=== PATIENT | male | born 1970 | race Caucasian/White ===

== ENCOUNTER 2020-10-04 14:07 | Emergency (ER) | payer OTHER, SELFPAY ==
--- NOTE | ~2020-10-04 | XR_ITS ---
EXAMINATION: XR chest 1V portable EXAM DATE: 10/04/2020 15:57 INDICATION: Fever, headache, neck pain. TECHNIQUE: Portable AP frontal chest x-ray was obtained. There is no prior study for comparison. FINDINGS: There is approximately 5 cm opacity in the left upper lobe, a smaller left midlung zone opa city. Probably acute infectious process. Small to moderate right-sided pleural effusion. There is lob ular region along the left lower lateral aspect of the pleura, which could be a small loculated pleur al effusion. There are bony degenerative changes. The cardiomediastinal silhouette is prominent but m agnified on this AP technique. There is no pneumothorax suspected. IMPRESSION: 1. Left upper and mid lung zone airspace disease, most likely acute infection. Could be bacterial or viral. 2. Small to moderate right, possible small loculated limited left pleural effusions. 3. Follow-up chest x-ray is recommended in 1 month to exclude underlying cancer. Reviewed, dictated and finalized at location A. ARTS INSTRUCTOR IMPRESSION: 1. Left upper and mid lung zone airspace disease, most likely acute infection. Could be bacterial or viral. 2. Small to moderate right, possible small loculated limited left pleural effu sions. 3. Follow-up chest x-ray is recommended in 1 month to exclude underlying cance r.
[2020-10-04 14:17] VITALS: BP 171/93; PULSE 107; RESP 20; TEMP 37.9; O2SAT 94
--- NOTE | 2020-10-04 15:38 | ECG_ITS ---
Measurements Intervals [place] Rate: 94 P: 88 ME: 146 QRS: 53 QRSD: 90 T: 30 QT: 329 QTc: 413 Interpretive Statements SINUS RHYTHM VENTRICULAR PREMATURE COMPLEX NONSPECIFIC T-WAVE ABNORMALITY- INFERIOR LEADS BASELINE ARTIFACT- I, III, AVR, AVL BORDERLINE ECG Electronically Signed On 10-04-2020 17:22:07 SPIRITUAL MINISTER by Tanmay Angulo D.O.
--- NOTE | 2020-10-04 15:38 | ED.FEVER ---
HPI - Fever General Chief Complaint: Fever Stated Complaint: fever, achey, neck pain, headache Time Seen by Provider: 10/04/20 15:38 [facility] Social History Social History Gender identity (if verbalized by the patient): Male Course Vital Signs Vital signs: Vital Signs Temperature 37.9 C H 10/04/20 14:17 Pulse Rate 107 H 10/04/20 14:17 Respiratory Rate 20 10/04/20 14:17 Blood Pressure 171/93 H 10/04/20 14:17 Pulse Oximetry 94 10/04/20 14:17 Temperature 37.9 C H 10/04/20 14:17 Pulse Rate 107 H 10/04/20 14:17 Respiratory Rate 20 10/04/20 14:17 Blood Pressure 171/93 H 10/04/20 14:17 Pulse Oximetry 94 10/04/20 14:17
[2020-10-04] MEDS: SODIUM CHLORIDE 0.9% IV 1,000 ML 999 ML IV CONT (16:05)
[2020-10-04] MEDS: ACETAMINOPHEN 500 MG TABLET 1000 MG PO (16:06)
[2020-10-04 16:22] LABS: Basophils Percent Auto 0.4 % (0.2-1.2); Eosinophils Percent Auto 0.5 % (0-4.4); Hematocrit 44.4 % (42.0-52.0); Hemoglobin 15.1 g/dL (14.0-18.0); Immature Granulocyte Absolute 0.05 K/mm3 (0.00-0.031); Immature Granulocyte Percent A 0.6 % (0-0.5); Lymphocytes Absolute Auto 1.08 K/mm3 (0.9-3.2); Lymphocytes Percent Auto 13.5 % (18.3-44.2); Mean Corpuscular Hemoglobin 32.1 pg (26-34); Mean Corpuscular Volume 94.3 fl (80-100); Mean Platelet Volume 9.5 fl (7.4-10.4); Monocytes Absolute Auto 0.8 K/mm3 (0.1-0.6); Monocytes Percent Auto 9.9 % (2.6-8.5); Neutrophils Percent Auto 75.1 % (45.5-73.1); Platelet Count Result 216 k/mm3 (150-375); Red Blood Count 4.71 M/mm3 (4.6-6.20); Red Cell Distribution Width 12.9 % (11.5-14.5)
[2020-10-04 16:30] LABS: Alveolar/Arterial O2 Gradient 37.7 mmHg; Base Excess ABG 1.2 mEq/l (+/-2.0); Fractional Inspired Oxygen 21 %; HCO3 ABG 25.6 mEq/l (22.0-26.0); Methemoglobin ABG 0.2 %THb (0-1.5); Oxygen Saturation ABG 93.1 % (95.0-100.0); Oxyhemoglobin 91.8 % THb (90.0-100.0); PCO2 ABG 39.7 mmHg (35.0-45.0); PO2 ABG 64.5 mmHg (80.0-100.0); PO2 FiO2 Ratio Arterial Blood 3.07 %; Total Hemoglobin 15.5 g/dL (12.0-18.0); pH ABG 7.427 (7.350-7.450)
[2020-10-04 16:31] LABS: Device ROOM AIR; Modified Allen's Test Pass; Site Drawn RIGHT RADIAL
[2020-10-04 16:34] LABS: Lactic Acid Reflex 1.1 mmol/L (0.7-2.1)
[2020-10-04 16:45] LABS: Alanine Aminotransferase 42 U/L (4-50); Albumin Level 4.2 g/dL (3.5-5.1); Alkaline Phosphatase 61 U/L (38-126); Anion Gap 7 mmol/L (8-16); Aspartate Amino Transferase 37 U/L (17-59); Bilirubin,Total 0.9 mg/dL (0.2-1.3); Blood Urea Nitrogen 11 mg/dL (9-20); CRP 5.5 mg/dL (<1.0); Carbon Dioxide 31 mmol/L (22-30); Chloride 100 mmol/L (98-107); Estimated CRCL calculation 161 ml/min; Estimated Glomerular Filt Rate > 60; Glucose 142 mg/dL (75-110); Potassium 4.1 mmol/L (3.4-5.0); Sodium 138 mmol/L (137-145)
[2020-10-04 16:48] LABS: Mucus Urine Rare /lpf; WBC Urine 0-3 /hpf
[2020-10-04 16:49] LABS: Appearance Urine Sl Cloudy (Clear); Color Urine Yellow (Yellow)
[2020-10-04 16:50] LABS: Blood Urine 2+ (Negative); Glucose Urine UA Negative (Negative); Ketones Urine Negative (Negative); Nitrate Urine Negative (Negative); Protein Urine Trace mg/dL (Negative); Specific Grav Ur 1.015 (1.001-1.035)
[2020-10-04 16:51] LABS: Add Urine Microscopic? YES; Bilirubin Urine Negative (Negative); Leukocyte Esterase Ur Negative LEU/UL (Negative); Urobilinogen Urine Normal mg/dL (<2.0)
--- NOTE | 2020-10-04 17:00 | ED.FEVER ---
HPI - Fever General Chief Complaint: Fever <Tyler Hernandez PA-C - Last Filed: 10/04/20 17:40> Stated Complaint: fever, achey, neck pain, headache <Tyler Hernandez PA-C - Last Filed: 10/04/20 17:40> Time Seen by Provider: 10/04/20 15:38 <Tyler Hernandez PA-C - Last Filed: 10/04/20 17:40> Source: patient <Tyler Hernandez PA-C - Last Filed: 10/04/20 17:40> Mode of arrival: ambulatory <Tyler Hernandez PA-C - Last Filed: 10/04/20 17:40> Limitations: no limitations <Tyler Hernandez PA-C - Last Filed: 10/04/20 17:40> History of Present Illness HPI Narrative: Patient is a 50-year-old male who presents with 2 days duration of fever chills body ache neck pain headache minimal cough chills fever patient denies vomiting diarrhea chest pain shortness of breath. Patient denies known sick contacts but has been working. Patient has been attempting [id number] medications with minimal improvement. Patient presents per private vehicle and on arrival is febrile. <Tyler Hernandez PA-C - Last Filed: 10/04/20 17:40> Related Data Home Medications: Home Medications Medication Instructions Recorded Confirmed amlodipine 10 mg 10/04/20 glimepiride 1 mg 10/04/20 lisinopril 40 mg 10/04/20 metformin mg PO 10/04/20 <Tyler Hernandez PA-C - Last Filed: 10/04/20 17:40> Allergies/Adverse Reactions: Allergies Allergy/AdvReac Type Severity Reaction Status Date / Time No Known Allergies Allergy Verified 10/04/20 16:03 <Tyler Hernandez PA-C - Last Filed: 10/04/20 17:40> Review of Systems Review of Systems: All systems reviewed & are unremarkable except as noted in HPI and below <Tyler Hernandez PA-C - Last Filed: 10/04/20 17:40> PMFSH Past Medical History Medical History: Medical History (Updated 10/04/20 @ 17:36 by Tyler Hernandez PA-C) Diabetes mellitus Obesity <SHAKIRA Espinoza Last Filed: 10/04/20 17:40> Social History Social History: Social History (Updated 10/04/20 @ 17:02 by Tyler Hernandez PA-C) Smoking status: Never smoker Gender identity (if verbalized by the patient): Male <Tyler Hernandez PA-C - Last Filed: 10/04/20 17:40> Exam Narrative: Exam Narrative: GENERAL: Ill-appearing, obese, and in no acute distress. HEAD: Normocephalic, atraumatic. EYES: PERRLA and EOMI. ENT: Nares clear, no rhinorrhea or epistaxis. Mucous membranes moist. CHEST: Diminished on auscultation. No respiratory distress. No wheezes rales or rhonchi HEART: Tachycardic rate and regular rhythm. No murmur heard. Normal peripheral pulses. ABDOMEN: Soft, nontender, distended EXTREMITIES: Normal range of motion. No edema. SKIN: Warm, dry, no rash. NEURO: No focal deficits. Alert and oriented x3. Cranial nerves II through XII grossly intact. No meningismus PSYCH: Normal mood and affect. <Tyler Hernandez PA-C - Last Filed: 10/04/20 17:40> Course Course Emergency Course: Patient in the room at this time has been given medications as well as hydration patient with improvement of condition with likely COVID-19 as the etiology for his symptoms and illness patient was swabbed. Patient with pneumonia likely attributed to COVID-19 will be treated with antibiotic for this patient will be discharged home patient was asked to do squats in the room he did become hypoxic but quickly recovered patient has not required oxygenation patient notes that he does feel comfortable to try at home therapy and will return if symptoms worsen and has been provided with reasons to return. Patient without other high risk changes in his blood work. Patient will be sent home with an MDI and incentive spirometer. Patient is also been instructed to get a pulse oximeter to watch his oxygenation at home. Patient notes that he also has CPAP which she will be compliant with and has been. Patient also notes he will follow with primary care <Tyler Hernandez PA-C
[2020-10-04 17:02] VITALS: BP 117/51; PULSE 77; RESP 17; O2SAT 92
[2020-10-04] MEDS: DEXAMETHASONE SOD PHOS INJ 4 MG/ML VIAL 10 MG IV PUSH (18:03)
[2020-10-04 18:12] VITALS: BP 160/88; PULSE 90; RESP 20; TEMP 37.3; O2SAT 95
[2020-10-05 01:50] LABS: SARS-CoV-2 RNA PCR Positive
== END 2020-10-04 18:13 | disposition home or self-care (01) ==
PROVIDERS: Emergency Medicine Emergency Medical Services; Emergency Provider Emergency Medicine
DX: U07.1 COVID-19 (principal); J12.89 Other viral pneumonia; E11.9 Type 2 diabetes mellitus without complications; Z79.84 Long term (current) use of oral hypoglycemic drugs; E66.9 Obesity, unspecified; Z68.43 Body mass index [BMI] 50.0-59.9, adult
CPT/HCPCS: 36415; 36600; 71045; 80053; 81001; 82375; 82805; 83050; 83605; 85025; 86140; 87040; 87635; 87804; 93005; 96361; 96374; 99284; A9270; C9803; J1100; J7030; U0003

== ENCOUNTER 2020-10-06 03:48 | Emergency (ER) | payer OTHER, SELFPAY ==
--- NOTE | ~2020-10-06 | XR_ITS ---
EXAMINATION: XR chest 1V portable DATE: 10/06/2020 04:52 INDICATION: Fever. COVID-19 pneumonia. TECHNIQUE: A single frontal view of the chest was obtained on 2 radiographs. COMPARISON: Chest single view 10/04/2020 FINDINGS: There are small pleural effusions. There are airspace opacities at right lung base and in a ll left lung zones with an upper lobe predominance. No pneumothorax. The heart size is normal. IMPRESSION: 1. Worsened airspace opacities in left mid and upper lung zones, consistent with pneumonia. Mild airs pace opacities at the lung bases, consistent with atelectasis versus pneumonia. 2. Stable small pleural effusions. Reviewed, dictated and finalized at location A. ANALYST IMPRESSION: 1. Worsened airspace opacities in left mid and upper lung zones, consistent wit h pneumonia. Mild airspace opacities at the lung bases, consistent with atelect asis versus pneumonia. 2. Stable small pleural effusions.
[2020-10-06 03:54] VITALS: BP 107/66; PULSE 103; RESP 20; TEMP 38.1; O2SAT 92
[2020-10-06 04:36] LABS: Basophils Percent Auto 0.4 % (0.2-1.2); Eosinophils Percent Auto 0.5 % (0-4.4); Hemoglobin 14.8 g/dL (14.0-18.0); Immature Granulocyte Absolute 0.03 K/mm3 (0.00-0.031); Immature Granulocyte Percent A 0.4 % (0-0.5); Lymphocytes Absolute Auto 1.17 K/mm3 (0.9-3.2); Lymphocytes Percent Auto 15.2 % (18.3-44.2); Mean Corpuscular HGB Conc 33.6 g/dl (32-36); Mean Corpuscular Hemoglobin 31.2 pg (26-34); Mean Corpuscular Volume 92.8 fl (80-100); Mean Platelet Volume 9.6 fl (7.4-10.4); Monocytes Absolute Auto 0.7 K/mm3 (0.1-0.6); Monocytes Percent Auto 9.5 % (2.6-8.5); Neutrophils Absolute Auto 5.7 K/mm3 (1.3-6.7); Platelet Count Result 210 k/mm3 (150-375); Red Blood Count 4.74 M/mm3 (4.6-6.20); White Blood Count 7.7 K/mm3 (4.5-10.0)
[2020-10-06 04:48] LABS: Lactic Acid Reflex 0.9 mmol/L (0.7-2.1)
[2020-10-06 04:50] LABS: Alanine Aminotransferase 41 U/L (4-50); Alkaline Phosphatase 45 U/L (38-126); Anion Gap 8 mmol/L (8-16); Aspartate Amino Transferase 60 U/L (17-59); Bilirubin,Total 0.7 mg/dL (0.2-1.3); Blood Urea Nitrogen 20 mg/dL (9-20); Calcium 9.8 mg/dL (8.4-10.2); Carbon Dioxide 30 mmol/L (22-30); Chloride 98 mmol/L (98-107); Estimated Glomerular Filt Rate > 60; Glucose 155 mg/dL (75-110); Sodium 136 mmol/L (137-145)
[2020-10-06 04:52] LABS: Prothrombin Time 13.5 Seconds (11.1-14.7)
[2020-10-06 04:53] LABS: Partial Thromboplastin Time 30.4 SECONDS (22.3-36.8)
--- NOTE | 2020-10-06 06:09 | ED.FEVER ---
HPI - Fever General Chief Complaint: Fever Stated Complaint: fever, waiting on covid results Time Seen by Provider: 10/06/20 04:43 Source: patient Mode of arrival: ambulatory Limitations: no limitations History of Present Illness HPI Narrative: This patient is a 50 year old male who presents for evaluation of a fever. He was evaluated 2 days ago for a fever. He was found to have pneumonia that is likely caused by COVID. He was discharged home with antibiotics, steroids and albuterol. He reports that he feels fine. He did not have another symptoms of covid until yesterday. He denies cough, shortness of breath, chest pain, vomiting, diarrhea or weakness. He was concerned because he had a high fever. He has been taking tylenol and ibuprofen alternating. He lose his sense of smell yesterday. MD elicited complaint: fever Related Data Home Medications Medication Instructions Recorded Confirmed amlodipine 10 mg 10/04/20 glimepiride 1 mg 10/04/20 lisinopril 40 mg 10/04/20 metformin mg PO 10/04/20 Allergies Allergy/AdvReac Type Severity Reaction Status Date / Time No Known Allergies Allergy Verified 10/04/20 16:03 Review of Systems Review of Systems: All systems reviewed & are unremarkable except as noted in HPI and below Constitutional: Constitutional: Denies chills and Reports fever(s) ENT: Denies nasal congestion and Denies sore throat Cardiovascular: Cardiovascular: Denies chest pain Respiratory: Respiratory: Denies dyspnea and Denies wheezing Gastrointestinal: Gastrointestinal: Denies abdominal pain, Denies nausea and Denies vomiting [facility] Past Medical History Medical History (Updated 10/06/20 @ 08:12 by Janice Harris MD) Diabetes mellitus Obesity Sleep apnea Social History Social History (Updated 10/04/20 @ 17:02 by Tyler Hernandez PA-C) Smoking status: Never smoker Gender identity (if verbalized by the patient): Male Exam Const: General: no acute distress Nutritional Appearance: obese Orientation/consciousness: patient oriented x3 HENMT: Head: atraumatic Face and sinus: face symmetric Mouth: Yes Normal oral and palatal mucosa present, Yes lip normal, Yes oropharynx normal and Yes moist mucous membranes Eyes: EOM: EOMs intact bilaterally Chest: Chest palpation & inspection: normal inspection of the chest Resp: Effort & Inspection: normal respiratory effort and no retractions Auscultation: clear to auscultation bilaterally Cardio: Rate: regular rate Rhythm: regular rhythm Heart sounds: no murmurs GI: GI Palp: Yes Soft to palpation, No Tenderness to palpation present (GI), No Guarding due to palpation present (GI) and No Rigid due to palpation Auscultation: normal bowel sounds Skin: General skin exam: normal color Rashes: no rashes Neuro: General: patient oriented x3 and moves all extremities Psych: Mental Status: mental status grossly normal Affect: normal affect Course Reevaluation(s) Reevaluation #1: PAtient states he feels fine. I discussed his xray appears to be the same as 2 days ago. He is not in distress. He is comfortable with discharge home . He will continue management of fever. I Also recommended getting pulse oximeter to monitor his oxygen. Date: 10/06/20 Time: 06:09 Vital Signs Vital signs: Vital Signs Temperature 100.6 F H 10/06/20 03:54 Pulse Rate 103 H 10/06/20 03:54 Respiratory Rate 20 10/06/20 03:54 Blood Pressure 107/66 10/06/20 03:54 Pulse Oximetry 92 10/06/20 03:54 Temperature 100.4 F H 10/06/20 06:58 Pulse Rate 103 H 10/06/20 06:58 Respiratory Rate 19 10/06/20 06:58 Blood Pressure 151/76 H 10/06/20 06:58 Pulse Oximetry 95 10/06/20 06:58 MDM - Fever Lab Data Attestation: I reviewed the patient's lab results. Result diagrams: 10/06/20 04:21 10/06/20 04:21 Labs: Lab Results 10/06/20 10/06/20 10/06/20 Range/Units 04:21 04:21 04:21 WBC 7.7 (
[2020-10-06 06:58] VITALS: BP 151/76; PULSE 103; RESP 19; TEMP 38; O2SAT 95
== END 2020-10-06 07:00 | disposition home or self-care (01) ==
PROVIDERS: Emergency Provider General Practice; PCP Internal Medicine Infectious Disease
DX: U07.1 COVID-19 (principal); J12.89 Other viral pneumonia; E11.9 Type 2 diabetes mellitus without complications; G47.30 Sleep apnea, unspecified; E66.9 Obesity, unspecified
CPT/HCPCS: 36415; 71045; 80053; 83605; 85025; 85610; 85730; 86140; 99283

== ENCOUNTER 2020-10-09 03:32 | Inpatient (IN) | payer OTHER, SELFPAY ==
[2020-10-09] VITALS (25 sets, daily range): BP systolic 104–152; BP diastolic 50–82; PULSE 69–121; RESP 16–44; TEMP 36.9–39.5; O2SAT 58–100; BMI 52.4
--- NOTE | ~2020-10-09 | US_ITS ---
EXAMINATION: US renal BI EXAM DATE: 10/12/2020 08:30 INDICATION: Acute kidney insufficiency. TECHNIQUE: Multiple grayscale and Doppler images of the kidneys were obtained (by a technologist who performed the scan) and subsequently reviewed. There is no prior study for comparison. FINDINGS: Right kidney: There is normal contour and echogenicity. It measures 12.6 x 8.8 x 7.8 centimeters. T here are no focal renal lesions identified. There is no hydronephrosis. Left kidney: There is normal contour and echogenicity. It measures 12.3 x 7.3 x 7.3 centimeters. Th ere are no focal renal lesions identified. There is no hydronephrosis. Bladder not imaged, patient in prone position. IMPRESSION: Sonographically unremarkable kidneys. Reviewed, dictated and finalized at location A. NG MACHINE ATTENDANT
--- NOTE | ~2020-10-09 | XR_ITS ---
EXAMINATION: XR chest 1V portable DATE: 10/09/2020 04:47 INDICATION: Shortness of breath. COVID-19 pneumonia. TECHNIQUE: A single frontal view of the chest was obtained on 2 radiographs. COMPARISON: Chest single view 10/06/2020 FINDINGS: Again seen is mild elevation of right hemidiaphragm. There are small pleural effusions. The re are airspace opacities in all lung zones bilaterally, left worse than right. No pneumothorax. The heart size is normal. IMPRESSION: 1. Worsened diffuse lung disease, consistent with pneumonia. 2. Stable small pleural effusions. Reviewed, dictated and finalized at location A. GRAILS DEVELOPER
--- NOTE | ~2020-10-09 | XR_ITS ---
EXAMINATION: XR chest 1V portable DATE: 10/13/2020 13:45 INDICATION: COVID-19 pneumonia. Oxygen desaturation. TECHNIQUE: A single frontal view of the chest was obtained on 2 radiographs. COMPARISON: Chest single view 11:15 AM FINDINGS: There are airspace opacities in all lung zones bilaterally, right worse than left. There ar e small pleural effusions. No pneumothorax. The heart size is normal. The endotracheal tube tip is 7. 5 cm above the cyndi. The nasogastric tube is not well-visualized beyond the distal esophagus. A rig ht internal jugular central venous catheter is seen with tip at the superior cavoatrial junction. IMPRESSION: 1. Stable diffuse lung disease, consistent with pulmonary edema versus pneumonia. 2. Stable small pleural effusions. Reviewed, dictated and finalized at location A. MINER IMPRESSION: 1. Stable diffuse lung disease, consistent with pulmonary edema versus pneumoni a. 2. Stable small pleural effusions.
--- NOTE | ~2020-10-09 | XR_ITS ---
EXAMINATION: XR chest 1V portable EXAM DATE: 10/11/2020 05:57 INDICATION: COVID pneumonia. TECHNIQUE: Portable AP frontal chest x-ray was obtained. Comparison is made to prior examination from yesterday. FINDINGS: Endotracheal tube tip is 5 centimeters above the cyndi (ideal range is between 2 to 5 cm). There is a nasogastric tube seen with tip collimated off the study, but below the left hemidiaphrag m. Cardiac silhouette is silhouetted against the extensive bilateral mid and lower lung zone acute airsp glenny disease, infection and/or edema. There may be subpulmonic pleural effusions. No pneumothorax. The bones and soft tissues are unremarkable. There is no significant interval change compared to prior exam. IMPRESSION: 1. Tubes in position 2. Extensive bilateral mid and lower lung zone acute airspace disease. Reviewed, dictated and finalized at location A. EHOLD CHORES
--- NOTE | ~2020-10-09 | XR_ITS ---
EXAMINATION: XR chest ET placement DATE: 10/10/2020 17:47 INDICATION: Endotracheal tube placement TECHNIQUE: frontal view of the chest was obtained. COMPARISON: Chest radiograph dated 10/09/2020 FINDINGS: Endotracheal tube tip 4.3 cm above the cyndi. The trachea inferior to the bulb of the tracheostomy t ube appears narrowed which could be related to expiratory phase of imaging with decreased lung volume s since the prior study. Again seen are extensive bilateral airspace opacities. No pneumothorax. Hear t size is normal. Mediastinum appears widened which could be related to AP technique and body habitus . IMPRESSION: 1. ET tube 4.3 cm above the cyndi. 2. Small lung volumes with extensive bilateral airspace opacities which could represent pneumonia, at electasis, pulmonary edema, small bilateral pleural effusions or some combination thereof. Reviewed, dictated and finalized at location . ENSATION ASSOCIATE IMPRESSION: 1. ET tube 4.3 cm above the cyndi. 2. Small lung volumes with extensive bilateral airspace opacities which could r epresent pneumonia, atelectasis, pulmonary edema, small bilateral pleural effus ions or some combination thereof.
--- NOTE | ~2020-10-09 | XR_ITS ---
EXAMINATION: XR chest PICC line DATE: 10/11/2020 19:15 INDICATION: PICC line placement TECHNIQUE: frontal view of the chest was obtained on 4 separate images. COMPARISON: Chest radiograph dated 10/11/2020 at 5:14 AM FINDINGS: On the final image the distal tip of the right upper extremity peripherally inserted central venous c atheter (PICC) can be seen in the caudal superior vena cava near the superior cavoatrial junction. En dotracheal tube tip 7.2 cm above the cyndi. Nasogastric tube extends below the left hemidiaphragm w ith distal tip collimated off the study. Dense patchy airspace opacities throughout both lungs relatively sparing the apices. No pneumothorax or definitive pleural effusion. The partially obscured cardiac silhouette appears borderline enlarged accounting for AP technique. There are bridging osteophytes at multiple levels in the spine, consist ent with diffuse idiopathic skeletal hyperostosis (DISH). IMPRESSION: 1. Right PICC line tip in the caudal superior vena cava near the superior cavoatrial junction. 2. Endotracheal tube tip 7.2 cm above the cyndi. Consider advancement by 4-5 cm. 3. Minimal change attending for differences in technique and extensive bilateral airspace consolidati on concerning for multifocal pneumonia and/or ARDS.. Reviewed, dictated and finalized at location H. APPLICATIONS DEVELOPER IMPRESSION: 1. Right PICC line tip in the caudal superior vena cava near the superior cavoa trial junction. 2. Endotracheal tube tip 7.2 cm above the cyndi. Consider advancement by 4-5 c m. 3. Minimal change attending for differences in technique and extensive bilatera l airspace consolidation concerning for multifocal pneumonia and/or ARDS..
--- NOTE | ~2020-10-09 | XR_ITS ---
u XR chest 1V portable 10/14/2020 06:01 Indication: CovidPneumonia Procedure: AP portable chest Comparison: Comparison to multiple prior studies sequentially, with oldest reviewed study dated 09/22. Findings: Endotracheal tube tip 8 cm above the cyndi. NG tube is identified, tip not visualized. Rig ht IJ and subclavian central line tips in the SVC. Interval progression of diffuse bilateral airspace disease, consistent with pneumonia. Differential diagnosis includes edema and ARDS. Small right pleu ral effusion. Impression: 1: Interval progression of diffuse bilateral airspace disease, compatible with pneumonia. 2: Small right pleural effusion. Reviewed, dictated and finalized at location A. EY SUPERINTENDENT Impression: 1: Interval progression of diffuse bilateral airspace disease, compatible with pneumonia. 2: Small right pleural effusion.
--- NOTE | ~2020-10-09 | XR_ITS ---
XR chest port-a-cath/central 10/13/2020 11:27 Indication: Dialysis catheter placement Procedure: AP portable chest Comparison: Comparison to multiple prior studies sequentially, with oldest reviewed study dated 09/22. Findings: Interval placement of large bore right IJ central venous catheter, tip in the SVC. Persiste nt patchy bilateral airspace disease, compatible with pneumonia. Endotracheal tube tip 5.9 cm above t he cyndi. Small right pleural effusion. No pneumothorax. Impression: 1: Persistent bilateral airspace disease, compatible with pneumonia. No significant change. Reviewed, dictated and finalized at location A. STER COOK Impression: 1: Persistent bilateral airspace disease, compatible with pneumonia. No signifi cant change.
--- NOTE | ~2020-10-09 | XR_ITS ---
XR chest 1V portable 10/13/2020 06:14 Indication: Covid pneumonia Procedure: AP portable chest Comparison: Comparison to multiple prior studies sequentially, with oldest reviewed study dated 09/22. Findings: Endotracheal tube tip 5.5 cm above the cyndi. NG tube passes into the stomach, tip not sandy luated. PICC line tip in the condyle aspect in the SVC. Persistent patchy bilateral airspace disease, consistent with pneumonia. Small right pleural effusion. No pneumothorax. Impression: 1: No significant change to bilateral airspace disease, consistent with pneumonia. 2: Small right pleural effusion. Reviewed, dictated and finalized at location A. RAISER Impression: 1: No significant change to bilateral airspace disease, consistent with pneumon ia. 2: Small right pleural effusion.
--- NOTE | ~2020-10-09 | XR_ITS ---
EXAMINATION: XR abdomen NG/feed tube insert DATE: 10/10/2020 17:48 INDICATION: Nasogastric tube insertion TECHNIQUE: A supine view of the abdomen and lower chest was obtained for evaluation of feeding tube placement. COMPARISON: None. FINDINGS: Nasogastric tube tip in proximal side port in the body the gas-filled stomach. Opacities at the bilat eral lower lung zones with blunting at the right costophrenic angle and obscuration of the left hemid iaphragm suggesting small bilateral pleural effusions with associated atelectasis and/or pneumonia. H eart size is normal. There are bridging osteophytes at multiple levels in the spine, consistent with diffuse idiopathic skeletal hyperostosis (DISH). IMPRESSION: 1. Nasogastric tube in stomach. 2. Small bilateral pleural effusions with associated bilateral atelectasis and/or pneumonia in the vi sualized mid and lower lung zones. Reviewed, dictated and finalized at location H. R BUFFER IMPRESSION: 1. Nasogastric tube in stomach. 2. Small bilateral pleural effusions with associated bilateral atelectasis and/ or pneumonia in the visualized mid and lower lung zones.
--- NOTE | ~2020-10-09 | XR_ITS ---
EXAMINATION: XR chest 1V portable EXAM DATE: 10/12/2020 06:25 INDICATION: COVID pneumonia. TECHNIQUE: Portable AP frontal chest x-ray was obtained. Comparison is made to prior examination from 10/11/2020. FINDINGS: Endotracheal tube tip is 5 centimeters above the cyndi (ideal range is between 2 to 5 cm). There is a nasogastric tube seen with tip collimated off the study, but below the left hemidiaphrag m. There is a right-sided PICC line with tip poorly visualized region of the cavoatrial junction. Cardiac silhouette is silhouetted. There is extensive bilateral mid and lower lung zone acute airspac e disease, infection and/or edema. There may be subpulmonic pleural effusions. No pneumothorax. The bones and soft tissues are unremarkable. There is no significant interval change compared to prior exam. IMPRESSION: 1. Tubes, PICC line in position 2. Extensive bilateral mid and lower lung zone acute airspace disease. Reviewed, dictated and finalized at location A. RVISOR OF OFFICIALS
--- NOTE | 2020-10-09 03:41 | ECG_ITS ---
Measurements Intervals [place] Rate: 112 P: 59 ID: [id number] QRS: 41 QRSD: 97 T: 80 QT: 333 QTc: 456 Interpretive Statements SINUS TACHYCARDIA NONSPECIFIC ST & T-WAVE ABNORMALITY- INF/HIGH LAT LEADS BASELINE ARTIFACT- I, II, III, AVR, AVL, AVF, V1-V3 ABNORMAL ECG Electronically Signed On 10-09-2020 8:24:05 PRE PRESS OPERATOR by Tanmay Angulo D.O.
[2020-10-09] MEDS: SODIUM CHLORIDE 0.9% IV 1,000 ML 999 ML IV CONT (03:50)
[2020-10-09] MEDS: ALBUTEROL SULFATE (*SP) INHALER 2 PUFF INHALATION (03:50)
[2020-10-09] MEDS: DEXAMETHASONE SOD PHOS INJ 4 MG/ML VIAL 6 MG IV PUSH (03:52)
--- NOTE | 2020-10-09 03:53 | PC.NURSE ---
OXYGEN DECREASED TO 10L PER NRB MASK AT THIS TIME; WILL CONTINUE TO MONITOR.
[2020-10-09 03:55] LABS: Basophils Percent Auto 0.3 % (0.2-1.2); Eosinophils Percent Auto 0.1 % (0-4.4); Hematocrit 42.2 % (42.0-52.0); Hemoglobin 14.5 g/dL (14.0-18.0); Immature Granulocyte Absolute 0.06 K/mm3 (0.00-0.031); Immature Granulocyte Percent A 0.7 % (0-0.5); Lymphocytes Absolute Auto 0.89 K/mm3 (0.9-3.2); Lymphocytes Percent Auto 9.9 % (18.3-44.2); Mean Corpuscular HGB Conc 34.4 g/dl (32-36); Mean Corpuscular Hemoglobin 31.4 pg (26-34); Mean Corpuscular Volume 91.3 fl (80-100); Mean Platelet Volume 9.9 fl (7.4-10.4); Monocytes Absolute Auto 0.4 K/mm3 (0.1-0.6); Monocytes Percent Auto 4.4 % (2.6-8.5); Neutrophils Absolute Auto 7.6 K/mm3 (1.3-6.7); Neutrophils Percent Auto 84.6 % (45.5-73.1); Platelet Count Result 213 k/mm3 (150-375); Red Blood Count 4.62 M/mm3 (4.6-6.20); Red Cell Distribution Width 13.2 % (11.5-14.5)
[2020-10-09 04:07] LABS: Lactic Acid Reflex 1.4 mmol/L (0.7-2.1)
--- NOTE | 2020-10-09 04:16 | PC.NURSE ---
RESPIRATORY THERAPIST: [facility] AT BEDSIDE INITIATING 100% HIGH FLOW O2 AT 60L AT THIS TIME.
--- NOTE | 2020-10-09 04:26 | PC.NURSE ---
IN ADDITION TO THE 100% HIGH FLOW O2 AT 60L, A 100% NRB MASK AT 15L IS ADDED BY RESPRIATORY THERAPIS RAH AT THIS TIME.
--- NOTE | 2020-10-09 04:33 | PC.NURSE ---
ABG DRAWN ON 3RD ATTEMPT BY 2ND RT; TE [place] AT 0432.
[2020-10-09 04:36] LABS: Alveolar/Arterial O2 Gradient 605.5 mmHg; Base Excess ABG 0.2 mEq/l (+/-2.0); Fractional Inspired Oxygen 100 %; HCO3 ABG 25.1 mEq/l (22.0-26.0); Oxygen Content ABG 18.1 %vol (16.0-22.0); Oxygen Saturation ABG 92.9 % (95.0-100.0); Oxyhemoglobin 91.3 % THb (90.0-100.0); PCO2 ABG 41.8 mmHg (35.0-45.0); PO2 ABG 65.7 mmHg (80.0-100.0); PO2 FiO2 Ratio Arterial Blood 0.66 %; Total Hemoglobin 14.1 g/dL (12.0-18.0); pH ABG 7.397 (7.350-7.450)
[2020-10-09] MEDS: ALBUTEROL SULFATE (*SP) AEROSOL 1 PUFF 2 PUFF INHALATION (04:37)
[2020-10-09 04:38] LABS: Device HIGH FLOW NASAL CANN; Modified Allen's Test Pass; Site Drawn RIGHT RADIAL
[2020-10-09 04:40] LABS: INR 1.1; Prothrombin Time 14.3 Seconds (11.1-14.7)
[2020-10-09 04:41] LABS: Partial Thromboplastin Time 29.8 SECONDS (22.3-36.8)
[2020-10-09 04:43] LABS: Alanine Aminotransferase 77 U/L (4-50); Albumin Level 3.7 g/dL (3.5-5.1); Alkaline Phosphatase 42 U/L (38-126); Anion Gap 8 mmol/L (8-16); Aspartate Amino Transferase 96 U/L (17-59); Bilirubin,Total 0.6 mg/dL (0.2-1.3); Blood Urea Nitrogen 21 mg/dL (9-20); Calcium 9.1 mg/dL (8.4-10.2); Carbon Dioxide 30 mmol/L (22-30); Chloride 94 mmol/L (98-107); Estimated CRCL calculation 120 ml/min; Estimated Glomerular Filt Rate > 60; Glucose 178 mg/dL (75-110); Potassium 4.2 mmol/L (3.4-5.0); Sodium 132 mmol/L (137-145)
[2020-10-09 04:55] LABS: NT Pro B Type Natriuretic Pept 65 PG/ML (5-100); Troponin I 0.021 ng/mL (0.000-0.034)
--- NOTE | 2020-10-09 04:57 | ED.SOB ---
HPI - SOB/Dyspnea General Chief Complaint: Shortness of Breath/Dyspnea Stated Complaint: difficulty breathing, covid positive Time Seen by Provider: 10/09/20 03:46 History of Present Illness HPI Narrative: Patient is a 50-year-old gentleman who presents the emergency department with chief complaint of shortness of breath. Patient reports that he was recently diagnosed with COVID-19 and today has gotten worse. Patient states that today he noticed that he started getting more more shortness of breath this evening and I was unable to catch his breath. Patient does report that he has history of morbid obesity and has history of sleep apnea. Patient reports that he has had a cough that has been productive at home and has had fevers the patient reports that he still having fevers today and this has not been improved with Tylenol. Related Data Home Medications Medication Instructions Recorded Confirmed amlodipine 10 mg PO DAILY 10/04/20 glimepiride 1 mg PO DAILY 10/04/20 lisinopril 40 mg PO DAILY 10/04/20 metformin 500 mg PO DAILY 10/04/20 promethazine-DM 5 ml PO Q4H PRN 10/09/20 Allergies Allergy/AdvReac Type Severity Reaction Status Date / Time No Known Allergies Allergy Verified 10/09/20 03:57 Review of Systems Review of Systems: Narrative: CONSTITUTIONAL: Denies fever, chills, or sweats. EYES: Denies visual changes, redness, or discharge. ENT: Denies rhinorrhea, congestion, sore throat, or otalgia. CARDIOVASCULAR: Denies chest pain, palpitations, or edema. RESPIRATORY: Denies cough or dyspnea. GASTROINTESTINAL: Denies abdominal pain, nausea, vomiting, or diarrhea. GENITOURINARY: Denies dysuria or hematuria. SKIN: Denies rash or itching. MUSCULOSKELETAL: Denies back pain, joint pain, or myalgia. NEUROLOGIC: Denies headache, numbness, or weakness. PSYCHIATRIC: Denies anxiety or depression. All systems reviewed & are unremarkable except as noted in HPI and below PMFSH Past Medical History Medical History Diabetes mellitus Obesity Sleep apnea Social History Social History Smoking status: Never smoker Gender identity (if verbalized by the patient): Male Exam Narrative: Exam Narrative: GENERAL: Well-appearing, morbidly obese and in moderate respiratory distress. HEAD: Normocephalic, atraumatic. EYES: PERRLA and EOMI. ENT: Nares clear, no rhinorrhea or epistaxis. Mucous membranes moist. NECK: Supple. CHEST: Clear to auscultation. Moderate respiratory distress. HEART: Regular rate and rhythm. No murmur heard. Normal peripheral pulses. ABDOMEN: Soft, nontender, nondistended, normal active bowel sounds. EXTREMITIES: Normal range of motion. No edema. SKIN: Warm, dry, no rash. NEURO: No focal deficits. Alert and oriented x3. PSYCH: Normal mood and affect. Course Course Emergency Course: Patient was initially attempted on high flow nasal cannula patient continues to have significant shortness of breath with this and is at baseline a mouth breather. The patient was started on BiPAP to facilitate work of breathing Vital Signs Vital signs: Vital Signs Temperature 39.5 C H 10/09/20 03:36 Pulse Rate 121 H 10/09/20 03:36 Respiratory Rate 44 H 10/09/20 03:36 Pulse Oximetry 58 L 10/09/20 03:36 Temperature 39.5 C H 10/09/20 03:36 Pulse Rate 95 10/09/20 06:06 Respiratory Rate 24 H 10/09/20 06:06 Blood Pressure 121/77 10/09/20 06:06 Pulse Oximetry 95 10/09/20 06:06 MDM - SOB/Dyspnea Lab Data Result diagrams: 10/09/20 03:49 10/09/20 04:25 Labs: Lab Results 10/09/20 10/09/20 10/09/20 Range/Units 03:49 03:49 04:25 WBC 9.0 (4.5-10.0) K/mm3 RBC 4.62 (4.6-6.20) M/mm3 Hgb 14.5 (14.0-18.0) g/dL Hct 42.2 (42.0-52.0) % MCV 91.3 (80-100) fl MCH 31.4 (26-34) pg MCHC 34.4 (32-36) g/dl RDW 13.2 (11
--- NOTE | 2020-10-09 05:02 | PC.NURSE ---
AT APPROX 0450 THIS AM PT STARTED ON BiPAP AT 15/10 AT 80% O2 PER RAH RT.
[2020-10-09 05:08] LABS: Add Urine Microscopic? YES; Appearance Urine Clear (Clear); Bilirubin Urine Negative (Negative); Blood Urine 2+ (Negative); Color Urine Yellow (Yellow); Glucose Urine UA Negative (Negative); Ketones Urine 1+ mg/dL (Negative); Leukocyte Esterase Ur Negative LEU/UL (Negative); Mucus Urine Few /lpf; Nitrate Urine Negative (Negative); Protein Urine 2+ mg/dL (Negative); Specific Grav Ur 1.025 (1.001-1.035); Squamous Epithelial Cell Urine Rare /hpf (Few); Urobilinogen Urine Negative mg/dL (<2.0)
--- NOTE | 2020-10-09 05:26 | PC.NURSE ---
PT'S ROSE CALLED AT [phone] BY THIS RN AND GIVEN UPDATE ON PT'S CONDITION WITH PT'S CONDITION.
[2020-10-09] MEDS: ACETAMINOPHEN 325 MG TABLET 650 MG PO ×3 (05:34→17:33)
--- NOTE | 2020-10-09 09:24 | ADMGEN ---
This patient, Jesús Prasad, was admitted to IMU Room 210-01 @ 0650 by bed, from the Emergency Department. Patient/family oriented to hospital policies and general routines including ID bracelet, bed and alarms, visiting hours, pain management, procedures, bathroom and other care routines, personal items, smoking policy, room service/diet, and visiting hours. Information on how to activate the Rapid Response Team has been discussed. Patient/Family are encouraged to report perceived risks to care and to ask questions if they do not understand what they are told or what they should do.
--- NOTE | 2020-10-09 10:15 | PM.IMHP ---
H&P: HPI History of Present Illness Date/Time: 10/09/20 10:15 Chief complaint: COVID-19 pneumonia, hypoxia Narrative: Jesús Prasad is a 50 year old male with PMHx significant for Obesity, SREE on CPAP at night time, T2DM diet and oral hypoglycemics control, presented to ED first 2 days ago after he tested positive for Covid 19 novel virus, was having fevers that were not breaking, he was treated in ED and sent home on oral steroids, antibiotics and albuterol. Patient ceme back to ED due to worsening sob, productive cough,fevers, chills. Preliminary work up is significant for low saturation requiring BiPAP, chest xr was significant for worsening infiltrates present in both lung plummer. Review of Systems Review of Systems: Narrative: Unable to obtain a thorough review due to patient been on BiPAP currently. [facility] Past Medical History Medical History Diabetes mellitus Obesity Sleep apnea Family History Family History (Updated 10/09/20 @ 09:26 by Shiela Mckeon RN) Father Hypertension Hypercholesteremia Diabetes mellitus Mother Hypertension Hypercholesteremia Social History Social History Smoking packs per day: 2 Smoking cigarettes per day: 40.0 Years smoked: 35 Smoking pack-years: 70.00 Smoking status: Former smoker Tobacco type: cigarettes Second hand tobacco smoke exposure: No Alcohol intake: never Substance use: never Gender identity (if verbalized by the patient): Male Spiritual care concerns: No Meds Home Medications and Allergies Home Medications Medication Instructions Recorded Confirmed Type albuterol sulfate 2 puff INHALATION QID PRN #6.7 g 10/04/20 10/09/20 Rx amlodipine 10 mg PO DAILY 10/04/20 10/09/20 History azithromycin [Zithromax TRI-ANA PAULA] See Rx Instructions .ROUTE 10/04/20 10/09/20 Rx .COMPLEX #6 tablet famotidine [Pepcid] 20 mg PO BID #14 tablet 10/04/20 10/09/20 Rx fluticasone propionate [Flonase 2 spray INTRANASAL DAILY #9.9 ml 10/04/20 10/09/20 Rx Allergy Relief] glimepiride 1 mg PO DAILY 10/04/20 10/09/20 History ibuprofen [IBU] 600 mg PO Q6H PRN #7 tablet 10/04/20 10/09/20 Rx lisinopril 40 mg PO DAILY 10/04/20 10/09/20 History loratadine [Claritin] 10 mg PO DAILY PRN #14 tablet 10/04/20 10/09/20 Rx metformin 1,000 mg PO DAILY 10/04/20 10/09/20 History hydrochlorothiazide 25 mg PO DAILY 10/09/20 10/09/20 History promethazine-DM 5 ml PO Q4H PRN 10/09/20 10/09/20 History Allergies Allergy/AdvReac Type Severity Reaction Status Date / Time No Known Allergies Allergy Verified 10/09/20 03:57 Vital Signs Vital Signs - 24 hr 10/09/20 03:36 10/09/20 03:45 10/09/20 03:50 Temperature 103.1 F H Pulse Rate 121 H 109 H 107 H Respiratory Rate 44 H 32 H 38 H Blood Pressure 152/82 H Pulse Oximetry 58 L 97 10/09/20 03:54 10/09/20 04:14 10/09/20 04:25 Temperature Pulse Rate 106 H 110 H 108 H Respiratory Rate 25 H 28 H Blood Pressure Pulse Oximetry 94 93 91 10/09/20 04:29 10/09/20 05:00 10/09/20 05:06 Temperature Pulse Rate 108 H 106 H 107 H Respiratory Rate 16 33 H 38 H Blood Pressure 119/73 133/79 Pulse Oximetry 93 91 10/09/20 05:16 10/09/20 06:00 10/09/20 06:06 Temperature Pulse Rate 92 96 95 Respiratory Rate 24 H 24 H Blood Pressure 120/75 121/77 Pulse Oximetry 96 95 10/09/20 07:17 10/09/20 08:00 Temperature 99.1 F 100.4 F H Pulse Rate 92 86 Respiratory Rate 35 H 22 H Blood Pressure 105/54 L 104/59 L Pulse Oximetry 95 91 Exam Narrative: Exam Narrative: Lying in bed. Const: General: cooperative, comfortable, no acute distress, alert, awake and Physically active Nutritional Appearance: obese Orientation/consciousness: patient oriented x3 Limitations: no limitations Other: On BiPAP HENMT: Head: normal to inspection and normocephalic Ears: hearing grossly normal
[2020-10-09 11:07] LABS: Glucose Point of Care 180 (65-105)
[2020-10-09] MEDS: FAMOTIDINE 20 MG TABLET PO ×2 (11:16→17:27)
[2020-10-09] MEDS: INSULIN ASPART (*BKC) 100 UNITS/ML 9 UNITS SUB-Q ×2 (12:38→17:27)
[2020-10-09 13:46] LABS: Alanine Aminotransferase 67 U/L (4-50); Albumin Level 3.3 g/dL (3.5-5.1); Alkaline Phosphatase 39 U/L (38-126); Anion Gap 6 mmol/L (8-16); Aspartate Amino Transferase 79 U/L (17-59); Bilirubin,Total 0.5 mg/dL (0.2-1.3); Blood Urea Nitrogen 23 mg/dL (9-20); Calcium 8.7 mg/dL (8.4-10.2); Carbon Dioxide 33 mmol/L (22-30); Chloride 93 mmol/L (98-107); Estimated CRCL calculation 126 ml/min; Estimated Glomerular Filt Rate > 60; Glucose 267 mg/dL (75-110); Potassium 4.3 mmol/L (3.4-5.0); Sodium 132 mmol/L (137-145)
[2020-10-09 17:06] LABS: Glucose Point of Care 147 (65-105)
[2020-10-09] MEDS: FUROSEMIDE INJ 40 MG/4 ML VIAL IV PUSH (17:26)
[2020-10-10] VITALS (55 sets, daily range): BP systolic 70–141; BP diastolic 43–94; PULSE 69–111; RESP 14–38; TEMP 37.1–40; O2SAT 67–95
[2020-10-10 04:44] LABS: Glucose Point of Care 153 (65-105)
[2020-10-10] MEDS: ACETAMINOPHEN 325 MG TABLET 650 MG PO ×3 (08:18→19:58)
[2020-10-10 09:45] LABS: Glucose Point of Care 162 (65-105)
[2020-10-10] MEDS: DEXAMETHASONE SOD PHOS INJ 4 MG/ML VIAL 6 MG IV PUSH (09:48)
[2020-10-10] MEDS: amLODIPine BESYLATE 5 MG TABLET 10 MG PO (09:48)
[2020-10-10] MEDS: FUROSEMIDE INJ 40 MG/4 ML VIAL IV PUSH (09:49)
[2020-10-10] MEDS: lisinopriL 20 MG TABLET 40 MG PO (09:49)
[2020-10-10] MEDS: FAMOTIDINE 20 MG TABLET PO (09:49)
[2020-10-10] MEDS: ALBUTEROL SULFATE (*SP) AEROSOL 1 PUFF 2 PUFF INHALATION (10:25)
[2020-10-10 10:52] LABS: Basophils Percent Auto 0.2 % (0.2-1.2); Hematocrit 39.9 % (42.0-52.0); Hemoglobin 13.8 g/dL (14.0-18.0); Immature Granulocyte Absolute 0.07 K/mm3 (0.00-0.031); Immature Granulocyte Percent A 0.8 % (0-0.5); Lymphocytes Absolute Auto 1.03 K/mm3 (0.9-3.2); Lymphocytes Percent Auto 11.1 % (18.3-44.2); Mean Corpuscular HGB Conc 34.6 g/dl (32-36); Mean Corpuscular Hemoglobin 31.9 pg (26-34); Mean Corpuscular Volume 92.4 fl (80-100); Mean Platelet Volume 9.6 fl (7.4-10.4); Monocytes Absolute Auto 0.3 K/mm3 (0.1-0.6); Monocytes Percent Auto 3.6 % (2.6-8.5); Neutrophils Absolute Auto 7.8 K/mm3 (1.3-6.7); Neutrophils Percent Auto 84.3 % (45.5-73.1); Platelet Count Result 250 k/mm3 (150-375); Red Blood Count 4.32 M/mm3 (4.6-6.20); Red Cell Distribution Width 13.2 % (11.5-14.5); White Blood Count 9.2 K/mm3 (4.5-10.0)
[2020-10-10 11:07] LABS: Anion Gap 5 mmol/L (8-16); Blood Urea Nitrogen 24 mg/dL (9-20); Carbon Dioxide 35 mmol/L (22-30); Chloride 91 mmol/L (98-107); Estimated CRCL calculation 115 ml/min; Estimated Glomerular Filt Rate > 60; Glucose 183 mg/dL (75-110); Potassium 4.3 mmol/L (3.4-5.0); Sodium 131 mmol/L (137-145)
--- NOTE | 2020-10-10 11:53 | PM.IMPN ---
Progress Note: A&P Assessment and Plan (1) Pneumonia due to COVID-19 virus: Code(s): U07.1 - COVID-19; J12.89 - Other viral pneumonia Status: Acute Assessment and Plan: Started on Remdesivir LFT's reviewed Dexamethasone on Rocephin + Zithromax Isolation status (2) SREE treated with BiPAP: Code(s): G47.33 - Obstructive sleep apnea (adult) (pediatric) Status: Acute Assessment and Plan: On continuous BiPAP at night time. (3) Sepsis with acute hypoxic respiratory failure: Code(s): A41.9 - Sepsis, unspecified organism; R65.20 - Severe sepsis without septic shock; J96.01 - Acute respiratory failure with hypoxia Status: Acute Assessment and Plan: Likely secondary to Covid pneumonia. On high flow oxygen (4) T2DM (type 2 diabetes mellitus): Code(s): E11.9 - Type 2 diabetes mellitus without complications Status: Acute Assessment and Plan: Holding oral On clear liquids currently (5) Obesity determined by physical examination: Code(s): E66.9 - Obesity, unspecified Status: Acute Assessment and Plan: Lifestyle and diet modifications. (6) Fluid overload: Code(s): E87.70 - Fluid overload, unspecified Status: Acute Assessment and Plan: Fluid restriction to 1200 cc daily Lasix 40 bid Will monitor for contraction alkalosis. (7) Acute and chronic respiratory failure with hypoxia: Code(s): J96.21 - Acute and chronic respiratory failure with hypoxia Status: Acute Assessment and Plan: Likely SREE contributing to it. BiPAP at night time On high flow currently Breathing treatments Continuous pulse ox Supportive care Research Biologist consult. Subjective Date/time seen: 10/10/20 11:54 I feel fine Review of Systems Review of Systems: Narrative: Unable to get a thorough review of systems as patient is on high flow oxygen. Exam Narrative: Exam Narrative: Sitting by the edge of the bed. High flow oxygen on. Able to speak in full sentences. Const: General: cooperative, alert, awake and Physically active Nutritional Appearance: overweight Orientation/consciousness: patient oriented x3 HENMT: Head: normal to inspection and normocephalic Ears: hearing grossly normal bilaterally General nose exam: Normal external nose present Face and sinus: normal facial exam Mouth: Yes Normal oral and palatal mucosa present Eyes: General: appearance normal, both eyes and all related structures Conjunctivae: conjunctivae normal Pupils: Equal, round and reactive pupils present EOM: EOMs intact bilaterally Neck: Neck: full ROM, no lymphadenopathy and no JVD Resp: Effort & Inspection: audible wheezes Cardio: Jugular venous distension: no JVD Rate: regular rate Rhythm: regular rhythm GI: Inspection: Pannus present GI Palp: Yes Soft to palpation and Yes No hepatosplenomegaly present Skin: General skin exam: normal color Lesions: no lesions Rashes: no rashes Wounds: no wounds Neuro: General: patient oriented x3 and CN's II-XI intact bilaterally Cranial nerves: Yes CN's II-XII intact bilaterally and Yes Equal, round and reactive pupils present Cognition (Neuro): normal cognition Speech: normal speech Motor exam (neuro): 5/5 motor strength present throughout Extrem: General: full ROM and no pedal edema Objective Data Vital Signs Vital Signs: Vital Signs - 24 hr 10/09/20 12:00 10/09/20 12:33 10/09/20 14:00 Temperature Pulse Rate 83 102 H 69 Respiratory Rate 24 H Blood Pressure Pulse Oximetry 95 10/09/20 16:00 10/09/20 18:00 10/09/20 20:00 Temperature 99.6 F 98.4 F Pulse Rate 88 97 87 Respiratory Rate 32 H 35 H Blood Pressure 119/67 127/50 L Pulse Oximetry 95 94 10/09/20 20:53 10/09/20 22:00 10/10/20 00:00 Temperature 99.1 F Pulse Rate 92 105 H 96 Respiratory Rate 35 H 38 H Blood Pressure 124/45 L Pulse Oximetry 94 95 10/10/20 02:00 10/10/20 03:15 10/10/20 04:0
[2020-10-10 13:12] LABS: Glucose Point of Care 178 (65-105)
[2020-10-10] MEDS: REMDESIVIR 200 MG/NS 250 ML 200 MG/250 ML BAG 250 MG IVPB (14:17)
[2020-10-10 14:30] LABS: Alanine Aminotransferase 90 U/L (4-50)
[2020-10-10] MEDS: LORazepam INJ (*CRX) 2 MG/ML VIAL 1 MG IV PUSH (16:07)
[2020-10-10 16:55] LABS: Alveolar/Arterial O2 Gradient 593.4 mmHg; Base Excess ABG 4.6 mEq/l (+/-2.0); Carboxyhemoglobin 0.3 % THb (0-2.0); Fractional Inspired Oxygen 100 %; Methemoglobin ABG 0.3 %THb (0-1.5); Oxygen Content ABG 17.3 %vol (16.0-22.0); Oxyhemoglobin 84.9 % THb (90.0-100.0); PO2 ABG 53.1 mmHg (80.0-100.0); PO2 FiO2 Ratio Arterial Blood 0.53 %; Reduced Hemoglobin 14.5 %THb (0-5.0); Total Hemoglobin 14.5 g/dL (12.0-18.0); pH ABG 7.314 (7.350-7.450)
[2020-10-10 16:56] LABS: Device HIGH FLOW NASAL CANN; Modified Allen's Test Pass; Oxygen Saturation ABG 83.5 % (95.0-100.0); PCO2 ABG 66.5 mmHg (35.0-45.0); Site Drawn RIGHT RADIAL
--- NOTE | 2020-10-10 17:42 | WPDPROCEDUR ---
Procedures Intubation Intubation Date: 10/10/20 Consent: Verbal consent obtained. Sedative: versed Mg given: 4 Paralytic: rocuronium Mg given: 200 Laryngoscope: fiber optic video scope ET tube size: cuffed Tube secured depth (cm): 25 Tube secured location: other Tube placement confirmation: visualized tube passing through cords, equal breath sounds bilaterally and confirmation by capnometry Patient tolerated procedure: well and no complications Intubation complications: none Additional comments: Obesity
[2020-10-10] MEDS: FENTANYL 2,500MCG/NS250ML(*CRX 2,500 MCG/250 ML BAG IV CONT (17:45)
--- NOTE | 2020-10-10 17:47 | PM.EVENT ---
Event Note Event Note Event Note: Rapid response was called on patient to assess AMS, paradoxical breathing, tachypnea. Arrived to patient's room. Patient sitting on chair upright. BiPAP on. Patient tachypneic, low Tidal volumes were noted. Decision was made to place patient on ventilator. Proceeded to intubation. Secure airway was obtained after proper sedation was achieved. Patient transferred to ICU on ventilator support.
[2020-10-10 18:11] LABS: Alveolar/Arterial O2 Gradient 611.2 mmHg; Base Excess ABG 2.5 mEq/l (+/-2.0); Carboxyhemoglobin 0.3 % THb (0-2.0); Fractional Inspired Oxygen 100 %; HCO3 ABG 30.4 mEq/l (22.0-26.0); Methemoglobin ABG 0.3 %THb (0-1.5); Oxygen Content ABG 14.4 %vol (16.0-22.0); Reduced Hemoglobin 26.4 %THb (0-5.0); Total Hemoglobin 14.1 g/dL (12.0-18.0)
[2020-10-10 18:13] LABS: Oxygen Saturation ABG 68.8 % (95.0-100.0); PCO2 ABG 61.8 mmHg (35.0-45.0)
[2020-10-10 18:14] LABS: Arterial Blood Gas Vent Mode CMV; Arterial Blood Gas Ventilator rate 26 /MIN; Device VENTILATOR; Modified Allen's Test Pass; Site Drawn RIGHT RADIAL
[2020-10-10 18:15] LABS: Arterial Blood Gas Tidal Volume 450 ml
[2020-10-10 18:17] LABS: Arterial Blood Gas PEEP 14 cmH2O
--- NOTE | 2020-10-10 18:20 | P.PCNBED_ITS ---
Procedures Central Line Placement Right Femoral: Central Line Date: 10/10/20 Central Line Time: 18:00 Discussed w/ the patient/family/POA,the placement of a central venous catheter, including its clinical necessity/indication & associated potential risks, benifits and alternatives.: Yes Time Out Performed: Yes Patient Position: supine Patient placed on monitor/pulse ox: Yes Provider Prep: mask, sterile gown, sterile gloves, Max. sterile barrier precautions, cap and hand hygiene with conventional soap/water or alcohol based hand rub Central line prep: 2% Chlorhexidine scrub Sterile US Technique with sterile gel/sterile probe covers: Yes Slovenian: 7 Length (cm): 16 Depth of Insertion (cm): 16 Post Procedure: sutured in place, good blood return, all ports aspirated, flushed, capped, transparent dressing and securement product Patient tolerated procedure: well Complications: none
[2020-10-10 18:31] LABS: Glucose Point of Care 205 (65-105)
[2020-10-10 18:42] LABS: Basophils Percent Auto 0.2 % (0.2-1.2); Hematocrit 40.7 % (42.0-52.0); Hemoglobin 13.6 g/dL (14.0-18.0); Immature Granulocyte Absolute 0.07 K/mm3 (0.00-0.031); Immature Granulocyte Percent A 0.8 % (0-0.5); Lymphocytes Absolute Auto 0.56 K/mm3 (0.9-3.2); Lymphocytes Percent Auto 6.6 % (18.3-44.2); Mean Corpuscular HGB Conc 33.4 g/dl (32-36); Mean Corpuscular Hemoglobin 31.1 pg (26-34); Mean Corpuscular Volume 92.9 fl (80-100); Mean Platelet Volume 9.6 fl (7.4-10.4); Monocytes Absolute Auto 0.3 K/mm3 (0.1-0.6); Neutrophils Absolute Auto 7.6 K/mm3 (1.3-6.7); Neutrophils Percent Auto 89.4 % (45.5-73.1); Platelet Count Result 259 k/mm3 (150-375); Red Blood Count 4.38 M/mm3 (4.6-6.20); Red Cell Distribution Width 13.7 % (11.5-14.5); White Blood Count 8.5 K/mm3 (4.5-10.0)
[2020-10-10 18:59] LABS: Alanine Aminotransferase 83 U/L (4-50); Albumin Level 3.2 g/dL (3.5-5.1); Alkaline Phosphatase 39 U/L (38-126); Anion Gap 4 mmol/L (8-16); Aspartate Amino Transferase 104 U/L (17-59); Bilirubin,Total 0.6 mg/dL (0.2-1.3); Blood Urea Nitrogen 26 mg/dL (9-20); Calcium 8.8 mg/dL (8.4-10.2); Carbon Dioxide 38 mmol/L (22-30); Chloride 88 mmol/L (98-107); Estimated CRCL calculation 92 ml/min; Estimated Glomerular Filt Rate 53; Glucose 202 mg/dL (75-110); Lactate Dehydrogenase 1068 U/L (313-618); Lactic Acid Reflex 1.3 mmol/L (0.7-2.1); Potassium 5.1 mmol/L (3.4-5.0); Sodium 130 mmol/L (137-145)
[2020-10-10] MEDS: EPOPROSTENOL SODIUM 0.5 MG VIAL 1 MG INHALATION (19:12)
[2020-10-10] MEDS: ROCURONIUM BROMIDE 50 MG/5 ML VIAL (19:30)
[2020-10-10] MEDS: NOREPINEPHRINE 8 MG/D5W 250 ML 8 MG/250 ML BAG 9.38 MG IV CONT (19:48)
[2020-10-10 20:26] LABS: Alveolar/Arterial O2 Gradient 585.9 mmHg; Base Excess ABG 3.2 mEq/l (+/-2.0); Fractional Inspired Oxygen 100 %; HCO3 ABG 30.9 mEq/l (22.0-26.0); Oxygen Content ABG 18.5 %vol (16.0-22.0); Oxygen Saturation ABG 91.5 % (95.0-100.0); Oxyhemoglobin 91.2 % THb (90.0-100.0); PO2 ABG 66.9 mmHg (80.0-100.0); PO2 FiO2 Ratio Arterial Blood 0.67 %; Total Hemoglobin 14.4 g/dL (12.0-18.0); pH ABG 7.328 (7.350-7.450)
[2020-10-10] MEDS: ROCURONIUM BROMIDE 50 MG/5 ML VIAL IV PUSH (20:26)
[2020-10-10 20:30] LABS: Device VENTILATOR; Modified Allen's Test Pass; PCO2 ABG 60.2 mmHg (35.0-45.0); Site Drawn LEFT RADIAL
[2020-10-10 20:31] LABS: Arterial Blood Gas PEEP 16 cmH2O; Arterial Blood Gas Vent Mode PRESSURE CONTROL; Arterial Blood Gas Ventilator rate 30 /MIN; Peak Inspiratory Pressure 30 cmH2O
--- NOTE | 2020-10-10 20:31 | PC.NURSE ---
Patient became increasingly anxious, restless, and complained that he was unable to sleep for [address] Anderson who ordered a one time dose of Ativan 1 mg IVP. Assessed the patient at 1600, see documentation. Administered dose of Ativan at 1607, See MAR. Returned to administer 1700 medications at 1630. Found patient somnolent, tachypneic, exhibiting abdominal breathing, and less responsive. Called precepting nurse who was with another patient at the time, and a respiratory therapist was present and placed the patient on BiPAP. Obtained vital signs, see charting. Rapid response was then called. Called Dr Anderson and Edyta Ayon NP to patient's room. Physicians decided to emergently intubate and place Mobley catheter, OG, and central line. Patient was moved to ICU 1 at 1850.
[2020-10-11] VITALS (57 sets, daily range): BP systolic 97–159; BP diastolic 44–69; PULSE 57–82; RESP 28–30; TEMP 37.6–39.5; O2SAT 84–97
[2020-10-11] MEDS: NOREPINEPHRINE 8 MG/D5W 250 ML 8 MG/250 ML BAG 48.75 MG IV CONT (02:13)
[2020-10-11 03:11] LABS: Alveolar/Arterial O2 Gradient 619.4 mmHg; Base Excess ABG 0.5 mEq/l (+/-2.0); Carboxyhemoglobin 0.3 % THb (0-2.0); Fractional Inspired Oxygen 100 %; HCO3 ABG 25.7 mEq/l (22.0-26.0); Methemoglobin ABG 0.3 %THb (0-1.5); Oxygen Content ABG 17.9 %vol (16.0-22.0); Oxyhemoglobin 85.3 % THb (90.0-100.0); PCO2 ABG 43.2 mmHg (35.0-45.0); PO2 ABG 50.4 mmHg (80.0-100.0); Reduced Hemoglobin 14.1 %THb (0-5.0); pH ABG 7.392 (7.350-7.450)
[2020-10-11 03:13] LABS: Modified Allen's Test Pass; Oxygen Saturation ABG 85.4 % (95.0-100.0); Site Drawn LEFT RADIAL
[2020-10-11 03:14] LABS: Arterial Blood Gas Ventilator rate 30 /MIN; Device VENTILATOR
[2020-10-11 03:15] LABS: Arterial Blood Gas PEEP 16 cmH2O; Arterial Blood Gas Vent Mode PRESSURE CONTROL; Peak Inspiratory Pressure 30 cmH2O
[2020-10-11] MEDS: EPOPROSTENOL SODIUM 0.5 MG VIAL 1 MG INHALATION ×3 (04:20→21:25)
[2020-10-11 06:22] LABS: Basophils Percent Auto 0.2 % (0.2-1.2); Hematocrit 39.6 % (42.0-52.0); Hemoglobin 13.5 g/dL (14.0-18.0); Immature Granulocyte Absolute 0.19 K/mm3 (0.00-0.031); Immature Granulocyte Percent A 1.4 % (0-0.5); Lymphocytes Absolute Auto 1.15 K/mm3 (0.9-3.2); Lymphocytes Percent Auto 8.7 % (18.3-44.2); Mean Corpuscular HGB Conc 34.1 g/dl (32-36); Mean Corpuscular Hemoglobin 31.3 pg (26-34); Mean Corpuscular Volume 91.9 fl (80-100); Mean Platelet Volume 9.6 fl (7.4-10.4); Monocytes Absolute Auto 0.6 K/mm3 (0.1-0.6); Monocytes Percent Auto 4.7 % (2.6-8.5); Neutrophils Absolute Auto 11.3 K/mm3 (1.3-6.7); Platelet Count Result 273 k/mm3 (150-375); Red Blood Count 4.31 M/mm3 (4.6-6.20); Red Cell Distribution Width 13.7 % (11.5-14.5); White Blood Count 13.3 K/mm3 (4.5-10.0)
[2020-10-11 06:31] LABS: INR 1.1; Prothrombin Time 14.8 Seconds (11.1-14.7)
[2020-10-11 06:32] LABS: Partial Thromboplastin Time 32.5 SECONDS (22.3-36.8)
[2020-10-11 06:36] LABS: Alanine Aminotransferase 77 U/L (4-50)
[2020-10-11 06:46] LABS: Alanine Aminotransferase 76 U/L (4-50); Albumin Level 3.3 g/dL (3.5-5.1); Alkaline Phosphatase 44 U/L (38-126); Anion Gap 13 mmol/L (8-16); Aspartate Amino Transferase 85 U/L (17-59); Blood Urea Nitrogen 38 mg/dL (9-20); Calcium 8.9 mg/dL (8.4-10.2); Carbon Dioxide 29 mmol/L (22-30); Chloride 85 mmol/L (98-107); Estimated CRCL calculation 53 ml/min; Estimated Glomerular Filt Rate 24; Glucose 367 mg/dL (75-110); Magnesium 2.2 mg/dL (1.6-2.3); Phosphorus 3.9 mg/dL (2.5-4.5); Potassium 4.4 mmol/L (3.4-5.0); Sodium 127 mmol/L (137-145)
[2020-10-11 06:55] LABS: D Dimer 8.46 ug/mL (<0.48)
[2020-10-11] MEDS: FENTANYL 2,500MCG/NS250ML(*CRX 2,500 MCG/250 ML BAG 20 MCG IV CONT ×2 (07:02→19:53)
[2020-10-11] MEDS: NOREPINEPHRINE 8 MG/D5W 250 ML 8 MG/250 ML BAG 43.13 MG IV CONT (07:43)
[2020-10-11] MEDS: INSULIN ASPART (*BKC) 100 UNITS/ML SUB-Q ×4 (08:00→20:45)
[2020-10-11 08:33] LABS: Alveolar/Arterial O2 Gradient 613.3 mmHg; Base Excess ABG 0.3 mEq/l (+/-2.0); Carboxyhemoglobin 0.3 % THb (0-2.0); Fractional Inspired Oxygen 100 %; HCO3 ABG 24.3 mEq/l (22.0-26.0); Methemoglobin ABG 0.2 %THb (0-1.5); Oxygen Content ABG 18.2 %vol (16.0-22.0); Oxygen Saturation ABG 92.4 % (95.0-100.0); Oxyhemoglobin 91.4 % THb (90.0-100.0); PCO2 ABG 37.7 mmHg (35.0-45.0); PO2 FiO2 Ratio Arterial Blood 0.62 %; Reduced Hemoglobin 8.1 %THb (0-5.0); Total Hemoglobin 14.2 g/dL (12.0-18.0); pH ABG 7.428 (7.350-7.450)
[2020-10-11 08:35] LABS: Device VENTILATOR; Modified Allen's Test Pass; Site Drawn LEFT RADIAL
[2020-10-11 08:36] LABS: Arterial Blood Gas PEEP 16 cmH2O; Arterial Blood Gas Vent Mode PRESSURE CONTROL; Arterial Blood Gas Ventilator rate 30 /MIN; Peak Inspiratory Pressure 30 cmH2O
[2020-10-11] MEDS: DEXAMETHASONE SOD PHOS INJ 4 MG/ML VIAL 6 MG IV PUSH (08:48)
[2020-10-11] MEDS: PANTOPRAZOLE SODIUM IV 40 MG VIAL IV PUSH (11:31)
[2020-10-11] MEDS: ENOXAPARIN 40 MG/0.4 ML SYRINGE SUB-Q ×2 (11:31→19:56)
--- NOTE | 2020-10-11 11:57 | WPDCNINT ---
Assessment and Plan Assessment and plan (1) Acute and chronic respiratory failure with hypoxia: Code(s): J96.21 - Acute and chronic respiratory failure with hypoxia Status: Acute Assessment and Plan: Acute hypoxic respiratory failure likely related to COVID-19 pneumonia -chest x-ray and ABGs reviewed, patient was initially hypoxic post intubation, switched his ventilation to pressure control mode, peep of 16 and 100% FiO2 with improvement in serial ABGs. -patient on Flolan -continue fentanyl and Versed infusion. Continue Nimbex for neuromuscular blockade -patient has been on Zosyn for possible aspiration during intubation -will repeat chest x-ray and ABGs in a.m. (2) Pneumonia due to COVID-19 virus: Code(s): U07.1 - COVID-19; J12.89 - Other viral pneumonia Status: Acute Assessment and Plan: SARS-CoV-2 PCR PCR positive on 10/04/2020 -patient presented with fevers, increasing shortness of breath -started on Remdesivir and dexamethasone -patient has probably out of the window for convalescent plasma -continue droplet, airborne and contact isolation/precautions (3) SREE treated with BiPAP: Code(s): G47.33 - Obstructive sleep apnea (adult) (pediatric) Status: Acute Assessment and Plan: Currently intubated and sedated (4) T2DM (type 2 diabetes mellitus): Code(s): E11.9 - Type 2 diabetes mellitus without complications Status: Acute Assessment and Plan: Accu-Cheks high-dose sliding scale insulin (5) Shock: Code(s): R57.9 - Shock, unspecified Status: Acute Assessment and Plan: Patient was diuresed prior to intubation post intubation dropped his blood pressures requiring central line placement and started on Levophed will continue to maintain mean arterial pressures greater than 65 mmHg. Levophed currently being weaned -blood cultures from 10/09 are negative x2' -will obtain sputum culture (6) DVT prophylaxis: Code(s): Z29.9 - Encounter for prophylactic measures, unspecified Status: Acute Assessment and Plan: Lovenox 40 mg SQ q.12 hours (7) Dietary counseling and surveillance: Code(s): Z71.3 - Dietary counseling and surveillance Status: Acute Assessment and Plan: Protonix for stress ulcer prophylaxis Will start tube feeds in a a Additional Plan Will discuss with family Code status: Full code Critical care time spent: 44 minutes Due to a high probability of clinically significant, life threatening deterioration, the patient required my highest level of preparedness to intervene emergently and I personally spent this critical care time directly and personally managing the patient. This critical care time included obtaining a history; examining the patient; pulse oximetry; ordering and review of studies; arranging urgent treatment with development of a management plan; evaluation of patient's response to treatment; frequent reassessment; and discussions with other providers. It was exclusive of separately billable procedures and treating other patients and teaching time. Please see Assessment and Plan section and the rest of the note for further information on patient assessment and treatment Osteopathic Medicine Teacher Consult Note Consult date: 10/11/20 Time Seen: 07:02 Reason for consult: Acute hypoxic respiratory failure, COVID-19 pneumonia, hyponatremia, fevers -intubated on 10/10/2020 HPI: Jesús Prasad is a 50 year old male with past medical history of diabetes, morbid obesity, sleep apnea to the ED on 10/04/2020 with complains of fevers, chills, body aches, cough, patient's chest x-ray at that time upper and mid lung zone airspace disease patient was sent home with antibiotics, steroids and albuterol and to follow-up with his primary care doctor and await COVID-19 results. SARS-CoV-2 PCR was positive on 10/04/2020. -patient presented again to the ER on 10/06 with fevers and was waiting his COVID-19 results. Chani
[2020-10-11 12:24] LABS: Glucose Point of Care 342 (65-105)
[2020-10-11 12:24] LABS: Glucose Point of Care 350 (65-105)
--- NOTE | 2020-10-11 13:06 | PM.IMPN ---
Progress Note: A&P Assessment and Plan (1) Acute and chronic respiratory failure with hypoxia: Code(s): J96.21 - Acute and chronic respiratory failure with hypoxia Status: Acute Assessment and Plan: On vent support Vent management as per Int/Cc Appreciate Int/cc note (2) Sepsis with acute hypoxic respiratory failure: Code(s): A41.9 - Sepsis, unspecified organism; R65.20 - Severe sepsis without septic shock; J96.01 - Acute respiratory failure with hypoxia Status: Acute Assessment and Plan: Patient on Zosyn for probable aspiration during intubation. Received Vanc 2 g x once Blood cx no growth so far. Likely secondary to Covid 19 pneumonia. (3) SREE treated with BiPAP: Code(s): G47.33 - Obstructive sleep apnea (adult) (pediatric) Status: Acute Assessment and Plan: Currently vent. (4) Pneumonia due to COVID-19 virus: Code(s): U07.1 - COVID-19; J12.89 - Other viral pneumonia Status: Acute Assessment and Plan: On Dexamethasone On Remdesivir Supportive care. Subjective Date/time seen: 10/11/20 13:06 Patient is sedated on vent support. Review of Systems Review of Systems: Narrative: Unable to obtain as patient on vent support. Exam Narrative: Exam Narrative: Lying in bed on life support. Const: General: comfortable and other (Sedated on vent support.) Nutritional Appearance: obese HENMT: Head: normal to inspection and normocephalic General nose exam: Normal external nose present Face and sinus: normal facial exam Mouth: Yes Normal oral and palatal mucosa present Eyes: General: appearance normal, both eyes and all related structures Pupils: Equal, round and reactive pupils present EOM: EOMs intact bilaterally Neck: Neck: no lymphadenopathy and no JVD Lymphatic: no lymphadenopathy noted Resp: Effort & Inspection: normal respiratory effort Auscultation: clear to auscultation bilaterally Cardio: Rate: regular rate Rhythm: regular rhythm GI: Inspection: Pannus present GI Palp: Yes Soft to palpation and Yes No hepatosplenomegaly present Skin: General skin exam: normal color Rashes: no rashes Wounds: no wounds Neuro: General: other (Under sedation.) Extrem: General: normal to inspection and no pedal edema Objective Data Vital Signs Vital Signs: Vital Signs - 24 hr 10/10/20 13:21 10/10/20 14:00 10/10/20 16:00 Temperature 100.2 F H Pulse Rate 86 99 Respiratory Rate Blood Pressure Pulse Oximetry 87 L 10/10/20 16:43 10/10/20 16:56 10/10/20 17:30 Temperature Pulse Rate 91 Respiratory Rate Blood Pressure 111/81 135/94 H Pulse Oximetry 67 L 10/10/20 17:45 10/10/20 18:00 10/10/20 18:15 Temperature Pulse Rate 100 94 92 Respiratory Rate 28 H 26 H 26 H Blood Pressure Pulse Oximetry 10/10/20 18:29 10/10/20 18:30 10/10/20 18:45 Temperature Pulse Rate 81 90 90 Respiratory Rate 14 26 H 26 H Blood Pressure 111/47 L Pulse Oximetry 77 L 10/10/20 19:00 10/10/20 19:13 10/10/20 19:14 Temperature Pulse Rate 90 88 85 Respiratory Rate 26 H 30 H Blood Pressure Pulse Oximetry 84 L 85 L 10/10/20 19:15 10/10/20 19:48 10/10/20 19:50 Temperature Pulse Rate 94 81 Respiratory Rate 26 H 30 H Blood Pressure 71/45 L 71/48 L Pulse Oximetry 83 L 10/10/20 19:51 10/10/20 19:52 10/10/20 19:57 Temperature 101.9 F H Pulse Rate Respiratory Rate Blood Pressure 70/44 L 87/55 L Pulse Oximetry 10/10/20 19:58 10/10/20 20:00 10/10/20 20:04 Temperature 101.9 F H Pulse Rate 73 Respiratory Rate Blood Pressure 89/56 L Pulse Oximetry 10/10/20 20:50 10/10/20 20:58 10/10/20 21:10 Temperature 104 F H Pulse Rate 77 72 Respiratory Rate 30 H Blood Pressure 102/59 L Pulse Oximetry 88 L 10/10/20 21:22 10/10/20 21:24 10/10/20 21:59 Temperature Pulse Rate 74 75 76 Respiratory Rate 30 H Blood Pressure 81/43 L 81/43 L 78/54
[2020-10-11] MEDS: REMDESIVIR 100 MG/NS 250 ML 100 MG/250 ML BAG 250 MG IVPB (13:15)
[2020-10-11 14:09] LABS: Alveolar/Arterial O2 Gradient 620.6 mmHg; Base Excess ABG 2.2 mEq/l (+/-2.0); Carboxyhemoglobin 0.3 % THb (0-2.0); Fractional Inspired Oxygen 100 %; HCO3 ABG 28.4 mEq/l (22.0-26.0); Methemoglobin ABG 0.2 %THb (0-1.5); Oxygen Content ABG 14.9 %vol (16.0-22.0); Oxyhemoglobin 75.7 % THb (90.0-100.0); PCO2 ABG 50.1 mmHg (35.0-45.0); PO2 FiO2 Ratio Arterial Blood 0.42 %; Reduced Hemoglobin 23.8 %THb (0-5.0); pH ABG 7.371 (7.350-7.450)
[2020-10-11 14:36] LABS: PO2 ABG 42.3 mmHg (80.0-100.0)
[2020-10-11 14:37] LABS: Device VENTILATOR; Modified Allen's Test Pass; Site Drawn LEFT RADIAL
[2020-10-11 14:38] LABS: Arterial Blood Gas Vent Mode PRESSURE CONTROL; Arterial Blood Gas Ventilator rate 28 /MIN; Peak Inspiratory Pressure 32 cmH2O
[2020-10-11 14:39] LABS: Arterial Blood Gas PEEP 16 cmH2O
[2020-10-11 17:59] LABS: Glucose Point of Care 283 (65-105)
[2020-10-11 19:54] LABS: Alveolar/Arterial O2 Gradient 599.2 mmHg; Base Excess ABG 0.8 mEq/l (+/-2.0); Carboxyhemoglobin 0.3 % THb (0-2.0); Device VENTILATOR; Fractional Inspired Oxygen 100 %; HCO3 ABG 25.4 mEq/l (22.0-26.0); Methemoglobin ABG 0.2 %THb (0-1.5); Modified Allen's Test Unable to perform; Oxygen Content ABG 18.2 %vol (16.0-22.0); Oxygen Saturation ABG 94.9 % (95.0-100.0); Oxyhemoglobin 93.5 % THb (90.0-100.0); PCO2 ABG 40.7 mmHg (35.0-45.0); PO2 ABG 73.1 mmHg (80.0-100.0); PO2 FiO2 Ratio Arterial Blood 0.73 %; Site Drawn LEFT RADIAL; Total Hemoglobin 13.8 g/dL (12.0-18.0); pH ABG 7.413 (7.350-7.450)
[2020-10-11 19:55] LABS: Arterial Blood Gas PEEP 16 cmH2O; Arterial Blood Gas Vent Mode PRESSURE CONTROL; Arterial Blood Gas Ventilator rate 28 /MIN; Peak Inspiratory Pressure 32 cmH2O
[2020-10-11] MEDS: CENTRAL LINE FLUSH 10 ML IV PUSH (19:57)
[2020-10-11] MEDS: NOREPINEPHRINE 8 MG/D5W 250 ML 8 MG/250 ML BAG 9.38 MG IV CONT (22:59)
[2020-10-11 23:57] LABS: Glucose Point of Care 292 (65-105)
[2020-10-12] VITALS (57 sets, daily range): BP systolic 91–118; BP diastolic 55–81; PULSE 30–89; RESP 28–32; TEMP 36.1–38.3; O2SAT 82–99
[2020-10-12] MEDS: SODIUM CHLORIDE 0.9% IV 1,000 ML 999 ML IV CONT (00:48)
[2020-10-12] MEDS: INSULIN ASPART (*BKC) 100 UNITS/ML SUB-Q ×4 (00:54→19:56)
[2020-10-12 01:42] LABS: Glucose Point of Care 221 (65-105)
[2020-10-12 02:16] LABS: Alveolar/Arterial O2 Gradient 595.9 mmHg; Base Excess ABG -0.3 mEq/l (+/-2.0); Carboxyhemoglobin 0.3 % THb (0-2.0); Fractional Inspired Oxygen 100 %; HCO3 ABG 23.6 mEq/l (22.0-26.0); Methemoglobin ABG 0.2 %THb (0-1.5); Oxygen Content ABG 17.8 %vol (16.0-22.0); Oxygen Saturation ABG 96.3 % (95.0-100.0); Oxyhemoglobin 94.9 % THb (90.0-100.0); PO2 ABG 81.1 mmHg (80.0-100.0); PO2 FiO2 Ratio Arterial Blood 0.81 %; Reduced Hemoglobin 4.6 %THb (0-5.0); Total Hemoglobin 13.3 g/dL (12.0-18.0); pH ABG 7.434 (7.350-7.450)
[2020-10-12 02:17] LABS: Arterial Blood Gas Vent Mode PRESSURE CONTROL; Arterial Blood Gas Ventilator rate 28 /MIN; Device VENTILATOR; Modified Allen's Test Pass; Site Drawn LEFT RADIAL
[2020-10-12 02:18] LABS: Arterial Blood Gas PEEP 16 cmH2O
[2020-10-12] MEDS: EPOPROSTENOL SODIUM 0.5 MG VIAL 1 MG INHALATION ×3 (03:01→21:40)
[2020-10-12 05:06] LABS: Hematocrit 35.6 % (42.0-52.0); Hemoglobin 12.3 g/dL (14.0-18.0); Mean Corpuscular HGB Conc 34.6 g/dl (32-36); Mean Corpuscular Hemoglobin 31.2 pg (26-34); Mean Corpuscular Volume 90.4 fl (80-100); Mean Platelet Volume 10.1 fl (7.4-10.4); Platelet Count Result 242 k/mm3 (150-375); Red Blood Count 3.94 M/mm3 (4.6-6.20); Red Cell Distribution Width 13.4 % (11.5-14.5); White Blood Count 11.9 K/mm3 (4.5-10.0)
[2020-10-12 05:22] LABS: Alanine Aminotransferase 76 U/L (4-50); Albumin Level 2.9 g/dL (3.5-5.1); Alkaline Phosphatase 33 U/L (38-126); Anion Gap 10 mmol/L (8-16); Aspartate Amino Transferase 158 U/L (17-59); Bilirubin,Total 0.7 mg/dL (0.2-1.3); Blood Urea Nitrogen 58 mg/dL (9-20); Calcium 8.5 mg/dL (8.4-10.2); Carbon Dioxide 30 mmol/L (22-30); Chloride 87 mmol/L (98-107); Estimated CRCL calculation 28 ml/min; Estimated Glomerular Filt Rate 11; Glucose 202 mg/dL (75-110); Lactate Dehydrogenase 1000 U/L (313-618); Magnesium 2.5 mg/dL (1.6-2.3); Phosphorus 4.7 mg/dL (2.5-4.5); Potassium 4.3 mmol/L (3.4-5.0); Sodium 127 mmol/L (137-145)
[2020-10-12 05:33] LABS: D Dimer 4.99 ug/mL (<0.48)
[2020-10-12 05:34] LABS: CRP 19.8 mg/dL (<1.0)
[2020-10-12] MEDS: CENTRAL LINE FLUSH 10 ML IV PUSH ×3 (05:49→19:52)
[2020-10-12] MEDS: ENOXAPARIN 40 MG/0.4 ML SYRINGE SUB-Q ×2 (07:59→19:52)
[2020-10-12] MEDS: DEXAMETHASONE SOD PHOS INJ 4 MG/ML VIAL 6 MG IV PUSH (07:59)
[2020-10-12] MEDS: PANTOPRAZOLE SODIUM IV 40 MG VIAL IV PUSH (07:59)
[2020-10-12] MEDS: FENTANYL 2,500MCG/NS250ML(*CRX 2,500 MCG/250 ML BAG 20 MCG IV CONT ×2 (08:33→20:33)
[2020-10-12 09:17] LABS: Alveolar/Arterial O2 Gradient 591.3 mmHg; Base Excess ABG -0.9 mEq/l (+/-2.0); Carboxyhemoglobin 0.3 % THb (0-2.0); Fractional Inspired Oxygen 100 %; HCO3 ABG 24.8 mEq/l (22.0-26.0); Methemoglobin ABG 0.2 %THb (0-1.5); Oxygen Saturation ABG 94.8 % (95.0-100.0); Oxyhemoglobin 93.7 % THb (90.0-100.0); PCO2 ABG 44.9 mmHg (35.0-45.0); PO2 ABG 76.8 mmHg (80.0-100.0); PO2 FiO2 Ratio Arterial Blood 0.77 %; Reduced Hemoglobin 5.8 %THb (0-5.0); Total Hemoglobin 13.6 g/dL (12.0-18.0)
[2020-10-12 09:18] LABS: Device VENTILATOR; Modified Allen's Test Pass; Site Drawn RIGHT RADIAL
[2020-10-12 09:19] LABS: Arterial Blood Gas PEEP 16 cmH2O; Arterial Blood Gas Vent Mode PRESSURE CONTROL; Arterial Blood Gas Ventilator rate 28 /MIN; Peak Inspiratory Pressure 32 cmH2O
[2020-10-12 09:25] LABS: Glucose Point of Care 179 (65-105)
--- NOTE | 2020-10-12 11:31 | PM.CNNEP ---
Assessment and Plan Assessment and plan (1) Acute kidney failure, unspecified: Code(s): N17.9 - Acute kidney failure, unspecified Status: Acute Assessment and Plan: the patient has acute kidney injury. This is probably related to his shocky situation. He was on pressors before and these have been weaned. Hopefully with improved blood pressure, improved perfusion of the kidneys may result in more urine output. His creatinine has risen somewhat dramatically. Sometimes this happens with rhabdomyolysis. He did have some blood in the urine. Will check a CPK today to rule out rhabdomyolysis.. This may be related to COVID-19 , as any infection can cause 3rd spacing an abnormality is of fluid compartments resulting in a prerenal picture. At this point the patient is on 100% oxygenation but he is only 4L of positive so far and his blood pressure is low. Will hold off on dialysis for now and reassess in the morning to decide whether he needs dialysis tomorrow or not. (2) Shock: Code(s): R57.9 - Shock, unspecified Status: Acute Assessment and Plan: The patient is on norepinephrine. Blood pressure seems to be improved. He is down to only 1 mcg. (3) Acute and chronic respiratory failure with hypoxia: Code(s): J96.21 - Acute and chronic respiratory failure with hypoxia Status: Acute Assessment and Plan: The patient is on the ventilator and is on Flolan. (4) T2DM (type 2 diabetes mellitus): Code(s): E11.9 - Type 2 diabetes mellitus without complications Status: Acute Assessment and Plan: On Accu-Cheks and sliding-scale insulin (5) SREE treated with BiPAP: Code(s): G47.33 - Obstructive sleep apnea (adult) (pediatric) Status: Acute Assessment and Plan: now on the ventilator (6) Pneumonia due to COVID-19 virus: Code(s): U07.1 - COVID-19; J12.89 - Other viral pneumonia Status: Acute Assessment and Plan: on remdesivir and steroids. Liver enzymes are up and down potentially for myriad of reasons including passive congestion, possible fatty infiltration from obesity. If it rises too much more than consider holding the remdesivir? History of Present Illness Reason for Consult Consult date: 10/12/20 Chief Complaint Chief complaint: COVID-19 pneumonia, hypoxia History of Present Illness Narrative: Jesús is a very pleasant 50-year-old gentleman who has COVID-19. His underlying conditions include obesity, diabetes, hyperlipidemia, sleep apnea on a CPAP machine. the patient was tested for COVID a couple of days before admission and was positive. He was seen in the emergency room at the time and he was felt to be stable, and sent home on steroids antibiotics and albuterol. At the time he had fevers. Then he became more short of breath with cough. He went back to the emergency room there he was found to be hypoxic. He was placed on a BiPAP machine and admitted to the ICU. Eventually he was intubated. Now he is on Flolan, in the prone position, on 100% oxygenation with a peep of 15. The patient did have low blood pressure and so was placed on pressors. Overnight the pressors have been weaned in is on only 1 micro g of norepinephrine to keep his map above goal. The patient cannot give a history. His creatinine was normal before this. He did have some blood in the urine on the . Ultrasound has been done and is negative. Review of Systems Review of Systems: ROS unobtainable: Yes unobtainable due to medical condition [facility] Past Medical History Medical History Diabetes mellitus Obesity Sleep apnea Family History Family History Father Hypertension Hypercholesteremia Diabetes mellitus Mother Hypertension Hypercholesteremia Social History Social History (Reviewed
--- NOTE | 2020-10-12 12:32 | WPDINTPN ---
Progress Note: A&P Assessment and Plan (1) Acute and chronic respiratory failure with hypoxia: Code(s): J96.21 - Acute and chronic respiratory failure with hypoxia Status: Acute Assessment and Plan: Acute hypoxic respiratory failure likely related to COVID-19 pneumonia -intubated on 10/10/2020 -chest x-ray and ABGs reviewed, on pressure control ventilation with a PEEP of 1600% FiO2. -patient also on Flolan -continue fentanyl and Versed infusion. Continue Nimbex for neuromuscular blockade -patient has been on Zosyn for possible aspiration during intubation -will prone patient today (2) Pneumonia due to COVID-19 virus: Code(s): U07.1 - COVID-19; J12.89 - Other viral pneumonia Status: Acute Assessment and Plan: SARS-CoV-2 PCR PCR positive on 10/04/2020 -patient presented with fevers, increasing shortness of breath -continue Remdesivir and dexamethasone, creatinine trending up, -patient has probably out of the window for convalescent plasma -continue droplet, airborne and contact isolation/precautions (3) Shock: Code(s): R57.9 - Shock, unspecified Status: Acute Assessment and Plan: Patient was diuresed prior to intubation post intubation dropped his blood pressures requiring central line placement and started on Levophed will continue to maintain mean arterial pressures greater than 65 mmHg. Levophed currently being weaned -blood cultures from 10/09 are negative x2' -sputum cultures pending (4) Acute kidney failure, unspecified: Code(s): N17.9 - Acute kidney failure, unspecified Status: Acute Assessment and Plan: Acute kidney injury likely related to hypotension, hypoxia. Patient on Levophed, will continue to maintain MAP > 70 mmHg for adequate end organ perfusion -renal ultrasound was unremarkable -urine lytes have been ordered -Neurology evaluation and recommendation, check creatinine kinase to rule out rhabdomyolysis -could be related to COVID-19 -patient may require dialysis (5) SREE treated with BiPAP: Code(s): G47.33 - Obstructive sleep apnea (adult) (pediatric) Status: Acute Assessment and Plan: Currently intubated and sedated (6) T2DM (type 2 diabetes mellitus): Code(s): E11.9 - Type 2 diabetes mellitus without complications Status: Acute Assessment and Plan: Accu-Cheks high-dose sliding scale insulin (7) DVT prophylaxis: Code(s): Z29.9 - Encounter for prophylactic measures, unspecified Status: Acute Assessment and Plan: Lovenox 40 mg SQ q.12 hours (8) Dietary counseling and surveillance: Code(s): Z71.3 - Dietary counseling and surveillance Status: Acute Assessment and Plan: Protonix for stress ulcer prophylaxis Will start tube feeds in a.m. Additional Plan Discussed with Lori, his , updated with patient's condition and plan of care. She is aware that patient's creatinine is trending. Nephrology is following the patient. I answered all questions Code status: Full code Critical care time spent: 33 minutes Due to a high probability of clinically significant, life threatening deterioration, the patient required my highest level of preparedness to intervene emergently and I personally spent this critical care time directly and personally managing the patient. This critical care time included obtaining a history; examining the patient; pulse oximetry; ordering and review of studies; arranging urgent treatment with development of a management plan; evaluation of patient's response to treatment; frequent reassessment; and discussions with other providers. It was exclusive of separately billable procedures and treating other patients and teaching time. Please see Assessment and Plan section and the rest of the note for further information on patient assessment and treatment Subjective Date/time seen: 10/12/20 12:32 Interval history: Reason for consult: Acute hypoxi
[2020-10-12 13:03] LABS: Glucose Point of Care 182 (65-105)
[2020-10-12 13:14] LABS: Glucose Point of Care 224 (65-105)
[2020-10-12 13:17] LABS: Creatine Kinase 4844 U/L (55-170)
[2020-10-12] MEDS: REMDESIVIR 100 MG/NS 250 ML 100 MG/250 ML BAG 250 MG IVPB (14:11)
--- NOTE | 2020-10-12 15:44 | PM.IMPN ---
Progress Note: A&P Assessment and Plan (1) Acute kidney failure, unspecified: Code(s): N17.9 - Acute kidney failure, unspecified Status: Acute Assessment and Plan: Likely secondary to shock Checking CPK Nephrology consulted (2) Shock: Code(s): R57.9 - Shock, unspecified Status: Acute Assessment and Plan: On pressors MAP=65 (3) Acute and chronic respiratory failure with hypoxia: Code(s): J96.21 - Acute and chronic respiratory failure with hypoxia Status: Acute Assessment and Plan: On vent support Pronated. On Flolan therapy. (4) Obesity determined by physical examination: Code(s): E66.9 - Obesity, unspecified Status: Acute Assessment and Plan: Currently NPO. (5) Sepsis with acute hypoxic respiratory failure: Code(s): A41.9 - Sepsis, unspecified organism; R65.20 - Severe sepsis without septic shock; J96.01 - Acute respiratory failure with hypoxia Status: Acute Assessment and Plan: On Zosyn and Remdesivir (6) SREE treated with BiPAP: Code(s): G47.33 - Obstructive sleep apnea (adult) (pediatric) Status: Acute Assessment and Plan: Currently on vent. (7) Pneumonia due to COVID-19 virus: Code(s): U07.1 - COVID-19; J12.89 - Other viral pneumonia Status: Acute Assessment and Plan: On Remdesivir. Subjective Date/time seen: 10/12/20 15:44 Patient is on vent support. Exam Narrative: Exam Narrative: Pronated on vent support. Patient not examined, seen thru glass door. Objective Data Vital Signs Vital Signs: Vital Signs - 24 hr 10/11/20 15:59 10/11/20 16:00 10/11/20 16:45 Temperature 100.1 F H Pulse Rate 59 L 60 57 L Respiratory Rate 28 H 28 H Blood Pressure 102/64 Pulse Oximetry 94 95 10/11/20 16:46 10/11/20 18:00 10/11/20 19:32 Temperature Pulse Rate 57 L 62 60 Respiratory Rate 28 H 28 H Blood Pressure 109/57 L Pulse Oximetry 95 94 10/11/20 19:39 10/11/20 19:49 10/11/20 19:52 Temperature Pulse Rate 58 L 60 60 Respiratory Rate 28 H 28 H 28 H Blood Pressure Pulse Oximetry 95 10/11/20 19:53 10/11/20 19:54 10/11/20 20:00 Temperature 100.6 F H Pulse Rate 60 60 58 L Respiratory Rate 28 H 28 H Blood Pressure 116/68 106/68 Pulse Oximetry 95 10/11/20 20:45 10/11/20 20:47 10/11/20 21:25 Temperature Pulse Rate 59 L 57 L 61 Respiratory Rate 28 H 28 H Blood Pressure 109/69 109/69 Pulse Oximetry 96 10/11/20 21:27 10/11/20 21:56 10/11/20 21:57 Temperature Pulse Rate 64 59 L 59 L Respiratory Rate 28 H 28 H Blood Pressure 98/67 L Pulse Oximetry 95 10/11/20 22:00 10/11/20 22:57 10/11/20 22:59 Temperature 100.6 F H Pulse Rate 59 L 61 59 L Respiratory Rate 28 H 28 H Blood Pressure 98/59 L 97/66 L 97/66 L Pulse Oximetry 97 10/12/20 00:00 10/12/20 00:02 10/12/20 00:46 Temperature 100.5 F H Pulse Rate 61 58 L 57 L Respiratory Rate 28 H 28 H 28 H Blood Pressure 105/69 105/69 Pulse Oximetry 97 97 10/12/20 00:47 10/12/20 00:48 10/12/20 01:54 Temperature Pulse Rate 59 L 59 L 55 L Respiratory Rate 28 H 28 H 28 H Blood Pressure 105/69 113/69 Pulse Oximetry 10/12/20 01:56 10/12/20 01:58 10/12/20 01:59 Temperature 100 F H Pulse Rate 55 L 56 L 55 L Respiratory Rate 28 H 28 H Blood Pressure 118/70 118/70 Pulse Oximetry 99 10/12/20 02:00 10/12/20 02:10 10/12/20 03:05 Temperature Pulse Rate 58 L 57 L 56 L Respiratory Rate 28 H Blood Pressure Pulse Oximetry 99 98 10/12/20 03:08 10/12/20 04:00 10/12/20 04:29 Temperature 100.6 F H Pulse Rate 57 L 58 L 58 L Respiratory Rate 28 H 28 H Blood Pressure 117/64 117/64 Pulse Oximetry 99 98 10/12/20 04:30 10/12/20 04:31 10/12/20 04:33 Temperature Pulse Rate 58 L 59 L 59 L Respiratory Rate 28 H 28 H Blood Pressure 117/64 Pulse Oximetry 10/12/20 04:55 10/12/20 05:50 10/12/20 05:51 Tk
[2020-10-12 16:30] LABS: Alveolar/Arterial O2 Gradient 525.7 mmHg; Base Excess ABG -2.6 mEq/l (+/-2.0); Carboxyhemoglobin 0.3 % THb (0-2.0); Fractional Inspired Oxygen 90 %; HCO3 ABG 22.5 mEq/l (22.0-26.0); Methemoglobin ABG 0.1 %THb (0-1.5); Oxygen Content ABG 18.4 %vol (16.0-22.0); Oxygen Saturation ABG 94.6 % (95.0-100.0); Oxyhemoglobin 93.4 % THb (90.0-100.0); PCO2 ABG 40.4 mmHg (35.0-45.0); PO2 ABG 74.6 mmHg (80.0-100.0); PO2 FiO2 Ratio Arterial Blood 0.83 %; Reduced Hemoglobin 6.2 %THb (0-5.0); pH ABG 7.364 (7.350-7.450)
[2020-10-12 16:31] LABS: Arterial Blood Gas PEEP 16 cmH2O; Arterial Blood Gas Vent Mode PRESSURE CONTROL; Arterial Blood Gas Ventilator rate 28 /MIN; Device VENTILATOR; Modified Allen's Test Pass; Peak Inspiratory Pressure 32 cmH2O; Site Drawn RIGHT RADIAL
[2020-10-12 17:43] LABS: Glucose Point of Care 236 (65-105)
[2020-10-12 17:49] LABS: Creatine Kinase 2468 U/L (55-170)
--- NOTE | 2020-10-12 19:13 | PM.CNPUL ---
Assessment and Plan Assessment and plan (1) Acute and chronic respiratory failure with hypoxia: Code(s): J96.21 - Acute and chronic respiratory failure with hypoxia Status: Acute Assessment and Plan: He was treated as an outpatient Oct 04; test results from that day are (+) SARS-CoV-2, and he was admitted Oct 09, intubated Oct 10; critically ill with shock, acute on chronic respiratory failure with underlying lung disease due to history of smoking, has morbid super obesity with BMI 66.6, and this is a marker for poor outcome due to large number of JIMMIE-2 receptors in adipose tissue. He is on pressure control mode 100% inspiratory pressure of 32, peep of 16 rate of 28 with minimal hypercapnia pH 7.27 pCO2 49 PO2 53 saturation 84%. He has primarily a metabolic acidosis is a cause for his pH, and the acidosis is due to sepsis, shock, renal failure. Will likely need renal replacement therapy. Would continue the current settings on his vent and adjust based on subsequent ABGs. (2) Pneumonia due to COVID-19 virus: Onset Date: ~09/2020 Code(s): U07.1 - COVID-19; J12.89 - Other viral pneumonia Status: Acute Assessment and Plan: diffuse bilateral infiltrates with a positive test on October 04 SARS-CoV-2 on maximum treatment mechanical ventilation, intermittent prone positioning, Flolan, remdesivir and dexamethasone pressure control mode with adequate tidal volumes, and good control pCO2 he has his BMI working against him but so far, can still ventilate safety precautions with isolation and PPE for healthcare workers (3) SREE treated with BiPAP: Code(s): G47.33 - Obstructive sleep apnea (adult) (pediatric) Status: Acute Assessment and Plan: Not a current issue with intubation and mechanical ventilation. History of Present Illness History of Present Illness Consult date: 10/13/20 Requesting physician: Cole Nicholson MD Reason for consult: hypoxemia Chief complaint: COVID-19 pneumonia, hypoxia, Acute renal failure Narrative: NEW: Jesús Prasad is a 50 year old man with morbid obesity. He came to the ER on October 04 with coughing, fever and chills with body aches. He was treated with antibiotics, steroids and albuterol and released to his primary care doctor. His SARS-CoV-2 was positive on 10/04. October 06 he returned with fevers, was treated and sent home again. He returned on October 09 with worsening shortness of breath, productive cough and fevers. He had a day on BiPAP and on October 10 a rapid response was called for his respiratory failure with mental status changes and progressive CO2 retention. He was intubated October 10, difficult intubation and was hypoxic afterwards. He has been treated with remdesivir, dexamethasone, Flolan, paralytic, sedatives and supplementation with Vit D C and zinc. Zosyn was added for probable aspiration during his difficult intubation. He has had progressive renal failure with worsening metabolic acidosis. Review of Systems Review of Systems: ROS unobtainable: Yes unobtainable due to endotracheal tube PMFSH Past Medical History Medical History Acute kidney failure, unspecified Diabetes mellitus Obesity Sleep apnea Family History Family History Father Hypertension Hypercholesteremia Diabetes mellitus Mother Hypertension Hypercholesteremia Social History Social History Smoking packs per day: 2 Smoking cigarettes per day: 40.0 Years smoked: 35 Smoking pack-years: 70.00 Smoking status: Former smoker Tobacco type: cigarettes Second hand toba
[2020-10-12 19:55] LABS: Alveolar/Arterial O2 Gradient 608.8 mmHg; Base Excess ABG -5.1 mEq/l (+/-2.0); Carboxyhemoglobin 0.3 % THb (0-2.0); Fractional Inspired Oxygen 100 %; HCO3 ABG 22.1 mEq/l (22.0-26.0); Methemoglobin ABG 0.3 %THb (0-1.5); Oxygen Content ABG 16.2 %vol (16.0-22.0); Oxyhemoglobin 82.9 % THb (90.0-100.0); PCO2 ABG 49.2 mmHg (35.0-45.0); PO2 FiO2 Ratio Arterial Blood 0.55 %; Reduced Hemoglobin 16.5 %THb (0-5.0); Total Hemoglobin 13.9 g/dL (12.0-18.0)
[2020-10-12 19:58] LABS: Modified Allen's Test Pass; Oxygen Saturation ABG 84.2 % (95.0-100.0); Site Drawn LEFT RADIAL
[2020-10-12 19:59] LABS: Arterial Blood Gas Vent Mode PRESSURE CONTROL; Arterial Blood Gas Ventilator rate 28 /MIN; Device VENTILATOR; Peak Inspiratory Pressure 32 cmH2O
[2020-10-12 20:00] LABS: Arterial Blood Gas PEEP 16 cmH2O
[2020-10-12 20:40] LABS: Glucose Point of Care 212 (65-105)
[2020-10-13] VITALS (67 sets, daily range): BP systolic 79–126; BP diastolic 52–71; PULSE 56–93; RESP 14–36; TEMP 13.4–38.3; O2SAT 80–99; BMI 65.9
[2020-10-13] MEDS: INSULIN ASPART (*BKC) 100 UNITS/ML SUB-Q ×6 (00:12→20:31)
[2020-10-13 00:27] LABS: Glucose Point of Care 206 (65-105)
[2020-10-13 01:59] LABS: Alveolar/Arterial O2 Gradient 595.9 mmHg; Base Excess ABG -5.8 mEq/l (+/-2.0); Carboxyhemoglobin 0.3 % THb (0-2.0); Fractional Inspired Oxygen 100 %; Methemoglobin ABG 0.2 %THb (0-1.5); Oxygen Content ABG 18.1 %vol (16.0-22.0); Oxygen Saturation ABG 94.3 % (95.0-100.0); Oxyhemoglobin 92.9 % THb (90.0-100.0); PCO2 ABG 40.5 mmHg (35.0-45.0); PO2 ABG 76.6 mmHg (80.0-100.0); PO2 FiO2 Ratio Arterial Blood 0.77 %; Reduced Hemoglobin 6.6 %THb (0-5.0); Total Hemoglobin 13.8 g/dL (12.0-18.0); pH ABG 7.312 (7.350-7.450)
[2020-10-13 02:01] LABS: Device VENTILATOR; Modified Allen's Test Pass; Site Drawn LEFT RADIAL
[2020-10-13 02:02] LABS: Arterial Blood Gas PEEP 18 cmH2O; Arterial Blood Gas Vent Mode PRESSURE CONTROL; Arterial Blood Gas Ventilator rate 32 /MIN; Peak Inspiratory Pressure 32 cmH2O
[2020-10-13] MEDS: EPOPROSTENOL SODIUM 0.5 MG VIAL 1 MG INHALATION ×4 (03:23→22:11)
[2020-10-13 03:55] LABS: Hematocrit 37.4 % (42.0-52.0); Hemoglobin 12.9 g/dL (14.0-18.0); Mean Corpuscular HGB Conc 34.5 g/dl (32-36); Mean Corpuscular Hemoglobin 31.2 pg (26-34); Mean Corpuscular Volume 90.3 fl (80-100); Mean Platelet Volume 10.4 fl (7.4-10.4); Platelet Count Result 330 k/mm3 (150-375); Red Blood Count 4.14 M/mm3 (4.6-6.20); Red Cell Distribution Width 13.8 % (11.5-14.5); White Blood Count 17.7 K/mm3 (4.5-10.0)
[2020-10-13 04:22] LABS: Alanine Aminotransferase 87 U/L (4-50); Albumin Level 2.9 g/dL (3.5-5.1); Alkaline Phosphatase 37 U/L (38-126); Anion Gap 15 mmol/L (8-16); Aspartate Amino Transferase 139 U/L (17-59); Bilirubin,Total 0.8 mg/dL (0.2-1.3); Blood Urea Nitrogen 76 mg/dL (9-20); Calcium 8.3 mg/dL (8.4-10.2); Carbon Dioxide 25 mmol/L (22-30); Chloride 85 mmol/L (98-107); Estimated CRCL calculation 19 ml/min; Estimated Glomerular Filt Rate 7; Glucose 215 mg/dL (75-110); Magnesium 2.6 mg/dL (1.6-2.3); Phosphorus 8.7 mg/dL (2.5-4.5); Potassium 5.1 mmol/L (3.4-5.0); Sodium 125 mmol/L (137-145)
[2020-10-13 04:36] LABS: Glucose Point of Care 212 (65-105)
[2020-10-13] MEDS: CENTRAL LINE FLUSH 10 ML IV PUSH ×3 (05:01→20:32)
[2020-10-13 08:31] LABS: INR 1.2; Prothrombin Time 16.2 Seconds (11.1-14.7)
[2020-10-13 08:32] LABS: Partial Thromboplastin Time 29.8 SECONDS (22.3-36.8)
[2020-10-13 08:32] LABS: Alveolar/Arterial O2 Gradient 592.1 mmHg; Base Excess ABG -4.9 mEq/l (+/-2.0); Carboxyhemoglobin 0.3 % THb (0-2.0); Fractional Inspired Oxygen 100 %; HCO3 ABG 21.3 mEq/l (22.0-26.0); Methemoglobin ABG 0.2 %THb (0-1.5); Oxygen Content ABG 18.1 %vol (16.0-22.0); Oxygen Saturation ABG 94.3 % (95.0-100.0); Oxyhemoglobin 93.2 % THb (90.0-100.0); PCO2 ABG 43.4 mmHg (35.0-45.0); PO2 ABG 77.5 mmHg (80.0-100.0); PO2 FiO2 Ratio Arterial Blood 0.77 %; Reduced Hemoglobin 6.3 %THb (0-5.0); Total Hemoglobin 13.8 g/dL (12.0-18.0); pH ABG 7.308 (7.350-7.450)
[2020-10-13 08:33] LABS: Arterial Blood Gas PEEP 18 cmH2O; Arterial Blood Gas Vent Mode PRESSURE CONTROL; Arterial Blood Gas Ventilator rate 32 /MIN; Device VENTILATOR; Modified Allen's Test Pass; Peak Inspiratory Pressure 32 cmH2O; Site Drawn LEFT RADIAL
[2020-10-13] MEDS: DEXAMETHASONE SOD PHOS INJ 4 MG/ML VIAL 6 MG IV PUSH (09:23)
[2020-10-13] MEDS: PANTOPRAZOLE SODIUM IV 40 MG VIAL IV PUSH (09:23)
[2020-10-13] MEDS: FENTANYL 2,500MCG/NS250ML(*CRX 2,500 MCG/250 ML BAG 20 MCG IV CONT ×2 (09:46→21:18)
[2020-10-13 10:04] LABS: Glucose Point of Care 217 (65-105)
--- NOTE | 2020-10-13 11:00 | P.OP_ITS ---
Procedure Note - Detailed Date of procedure: 10/13/20 Pre-op diagnosis: COVID-19 pneumonia, hypoxia, Acute renal failure Post-op diagnosis: same Procedure performed: Right IJ Sy Dialysis Catheter Placement with U/S Guidance Description of procedure: * Procedure, risks, benefits, and alternatives were discussed with the family. Written consent was obtained and placed in chart prior to procedure. Patient was placed supine in hospital bed and placed in slight head up position due to patient's severe respiratory issues. Time-out was done to confirm patient and procedure. His right neck and chest area was prepped and draped in sterile fashion using chlorhexidine prep. SonoSite ultrasound was used to identify the right internal jugular vein. An 18 gauge introducer needle was advanced under ultrasound guidance directly into the right internal jugular vein. Dark nonpulsatile blood was aspirated. A 0.035 in guidewire was then advanced through the needle. The guidewire advanced smoothly. The needle was then withdrawn leaving the guidewire in place. A small magdy incision was made at the insertion site using an 11 blade scalpel. The blue dilators were then advanced over the guidewire to dilate the vessel. The 12 Turkmen triple lumen 20 cm dialysis catheter was then advanced over the guidewire until it was in place. The guidewire was removed. All 3 lumens were then aspirated and flushed with sterile saline. All 3 lumens function with ease. Caps were placed over the lumens. A stat lock was placed at the insertion site and the catheter was secured in place using 2 0 nylon simple interrupted sutures. A Tegaderm dressing was then applied over top. The patient was then sat up in bed and chest x-ray was ordered to confirm placement. Implants: 12 Turkmen 20 cm triple-lumen dialysis catheter Surgeon: Mike Marquez DO Estimated blood loss (mL): 5 Complications: No immediate complications Condition: stable Disposition: floor Findings: Ultrasound guidance was used to identify the right internal jugular vein. This was visualized as a compressible vessel just lateral to the pulsatile carotid artery. The vein was accessed with an 18 gauge introducer needle under ultrasound guidance. The guidewire advanced smoothly. X-ray was ordered to confirm placement.
--- NOTE | 2020-10-13 11:30 | WPDINTPN ---
Progress Note: A&P Assessment and Plan (1) Acute and chronic respiratory failure with hypoxia: Code(s): J96.21 - Acute and chronic respiratory failure with hypoxia Status: Acute Assessment and Plan: Acute hypoxic respiratory failure likely related to COVID-19 pneumonia -intubated on 10/10/2020 -chest x-ray and ABGs reviewed, on pressure control ventilation with a PEEP of 18, FiO2 of 100%. Will switch patient to CMV mode as he was getting significant amount of tidal volume on pressure control ventilation. -patient was prone for 12 hours on 10/12/2020, with improvement in the PO2 on the ABGs -patient also on Flolan -continue fentanyl and Versed infusion. Continue Nimbex for neuromuscular blockade -patient has been on Zosyn for possible aspiration during intubation -volume overloaded on chest x-ray and likely related to acute kidney injury, will place dialysis catheter and dialyze the patient today, discussed with Nephrology (2) Pneumonia due to COVID-19 virus: Onset Date: ~09/2020 Code(s): U07.1 - COVID-19; J12.89 - Other viral pneumonia Status: Acute Assessment and Plan: SARS-CoV-2 PCR PCR positive on 10/04/2020 -patient presented with fevers, increasing shortness of breath -continue Remdesivir and dexamethasone, creatinine trending up, will hold Remdesivir due to acute renal failure -patient has probably out of the window for convalescent plasma -continue droplet, airborne and contact isolation/precautions (3) Shock: Code(s): R57.9 - Shock, unspecified Status: Acute Assessment and Plan: Patient was diuresed prior to intubation post intubation dropped his blood pressures requiring central line placement and started on Levophed will continue to maintain mean arterial pressures greater than 70 mmHg for adequate end organ perfusion -blood cultures from 10/09 are negative x2 -sputum cultures pending (4) Acute kidney failure, unspecified: Code(s): N17.9 - Acute kidney failure, unspecified Status: Acute Assessment and Plan: Acute kidney injury likely related to hypotension, hypoxia. Patient on Levophed, will continue to maintain MAP > 70 mmHg for adequate end organ perfusion -renal ultrasound was unremarkable -elevated CK levels, worsening creatinine -discussed with nephrology, dialyze patient today. Dialysis catheter in right IJ -JG could be related to COVID-19 -discussed with patient's Lori, she was agreeable to dialysis (5) SREE treated with BiPAP: Code(s): G47.33 - Obstructive sleep apnea (adult) (pediatric) Status: Acute Assessment and Plan: Currently intubated and sedated (6) T2DM (type 2 diabetes mellitus): Code(s): E11.9 - Type 2 diabetes mellitus without complications Status: Acute Assessment and Plan: Accu-Cheks high-dose sliding scale insulin (7) DVT prophylaxis: Code(s): Z29.9 - Encounter for prophylactic measures, unspecified Status: Acute Assessment and Plan: Lovenox 40 mg SQ q.12 hours (8) Dietary counseling and surveillance: Code(s): Z71.3 - Dietary counseling and surveillance Status: Acute Assessment and Plan: Protonix for stress ulcer prophylaxis Will start tube feeds after dialysis Additional Plan Discussed with Lori, his , updated with patient's condition and plan of care. I discussed with her regarding dialysis this morning, she is agreeable. Discussed with Nephrology, discussed with surgery regarding placement of dialysis catheter Code status: Full code Critical care time spent: 34 minutes Due to a high probability of clinically significant, life threatening deterioration, the patient required my highest level of preparedness to intervene emergently and I personally spent this critical care time directly and personally managing the patient. This critical care time included obtaining a history; examining the patient; pulse oximetry; ordering
--- NOTE | 2020-10-13 12:39 | PM.CNGS ---
Assessment and Plan Assessment and plan (1) Acute kidney failure, unspecified: Code(s): N17.9 - Acute kidney failure, unspecified Status: Acute Assessment and Plan: Will proceed with Sy dialysis catheter placement. Nursing and CCP have already been in touch with family about current condition and need for dialysis. Consent obtained. (2) Acute and chronic respiratory failure with hypoxia: Code(s): J96.21 - Acute and chronic respiratory failure with hypoxia Status: Acute (3) Pneumonia due to COVID-19 virus: Onset Date: ~09/2020 Code(s): U07.1 - COVID-19; J12.89 - Other viral pneumonia Status: Acute History of Present Illness Consult details Consult date: 10/13/20 Reason for consult: central line Requesting physician: Nitza Fairchild MD Narrative: Patient is a 50 yo man intubated and sedated in the ICU with acute respiratory failure secondary to COVID. He has worsening renal function with electrolyte abnormalities and is in need of urgent hemodialysis. Hx reviewed in chart. Review of Systems Review of Systems: ROS unobtainable: Yes unobtainable due to endotracheal tube PMFSH Past Medical History Medical History Acute kidney failure, unspecified Diabetes mellitus Obesity Sleep apnea Family History Family History Father Hypertension Hypercholesteremia Diabetes mellitus Mother Hypertension Hypercholesteremia Social History Social History Smoking packs per day: 2 Smoking cigarettes per day: 40.0 Years smoked: 35 Smoking pack-years: 70.00 Smoking status: Former smoker Tobacco type: cigarettes Second hand tobacco smoke exposure: No Alcohol intake: never Substance use: never Gender identity (if verbalized by the patient): Male Spiritual care concerns: No Meds Home Medications and Allergies Home Medications Medication Instructions Recorded Confirmed Type albuterol sulfate 2 puff INHALATION QID PRN #6.7 g 10/04/20 10/09/20 Rx amlodipine 10 mg PO DAILY 10/04/20 10/09/20 History azithromycin [Zithromax TRI-ANA PAULA] See Rx Instructions .ROUTE 10/04/20 10/09/20 Rx .COMPLEX #6 tablet famotidine [Pepcid] 20 mg PO BID #14 tablet 10/04/20 10/09/20 Rx fluticasone propionate [Flonase 2 spray INTRANASAL DAILY #9.9 ml 10/04/20 10/09/20 Rx Allergy Relief] glimepiride 1 mg PO DAILY 10/04/20 10/09/20 History ibuprofen [IBU] 600 mg PO Q6H PRN #7 tablet 10/04/20 10/09/20 Rx lisinopril 40 mg PO DAILY 10/04/20 10/09/20 History loratadine [Claritin] 10 mg PO DAILY PRN #14 tablet 10/04/20 10/09/20 Rx metformin 1,000 mg PO DAILY 10/04/20 10/09/20 History hydrochlorothiazide 25 mg PO DAILY 10/09/20 10/09/20 History promethazine-DM 5 ml PO Q4H PRN 10/09/20 10/09/20 History Allergies Allergy/AdvReac Type Severity Reaction Status Date / Time No Known Allergies Allergy Verified 10/09/20 03:57 Vital Signs Vital Signs - 24 hr 10/12/20 14:00 10/12/20 15:11 10/12/20 15:30 Temperature Pulse Rate 60 60 63 Respiratory Rate 28 H 28 H Blood Pressure 103/71 108/81 Pulse Oximetry 92 93 10/12/20 15:48 10/12/20 16:00 10/12/20 18:00 Temperature 37.1 C Pulse Rate 63 67 Respiratory Rate 28 H 28 H Blood Pressure 102/68 101/66 Pulse Oximetry 95 93 95 10/12/20 18:17 10/12/20 18:19 10/12/20 19:30 Temperature Pulse Rate 60 60 70 Respiratory Rate 28 H 28 H Blood Pressure 101/64 Pulse Oximetry 93 94 10/12/20 19:41 10/12/20 20:00 10/12/20 20:04 Temperature 36.1 C L Pulse Rate 70 69 60 Respiratory Rate 28 H 32 H Blood Pressure 98/58 L Pulse Oximetry 82 L 97 84 L 10/12/20 20:33 10/12/20 20:35 10/12/20 20:58 Temperature Pulse Rate 69 69 68 Respiratory Rate 32 H 32 H 32 H Blood Pressure 105/66 Pulse Oximetry 10/12/20 20:59
--- NOTE | 2020-10-13 12:55 | PM.PNNEP ---
Progress Note: A&P Assessment and Plan (1) Acute kidney failure, unspecified: Code(s): N17.9 - Acute kidney failure, unspecified Status: Acute Assessment and Plan: most likely ATN from a combination of hemodynamic instability, COVID-19 infection, and mild rhabdo unfortunately, his creatinine continues to rise associated with worsening oxygenation and hyponatremia and hyperkalemia furthermore, his urine output is declining as well; he remains on pressors as well I think he needs dialysis/renal replacement therapy -- my only concern is whether he be able to tolerated regular intermittent HD or will he require CRRT... HD catheter in place and HD treatment started -- will se how he tolerates..... (2) Shock: Code(s): R57.9 - Shock, unspecified Status: Acute Assessment and Plan: on levophed follow hemodynamics continue supportive therapy (3) Acute and chronic respiratory failure with hypoxia: Code(s): J96.21 - Acute and chronic respiratory failure with hypoxia Status: Acute Assessment and Plan: presumably worsened by COVID-19 pneumonia on maximum ventilator support also on Flolan continue supportive measures (4) Pneumonia due to COVID-19 virus: Onset Date: ~09/2020 Code(s): U07.1 - COVID-19; J12.89 - Other viral pneumonia Status: Acute Assessment and Plan: on remdesivir and steroids follow respiratory status Will continue to follow. Subjective Date/time seen: 10/13/20 12:55 Just started dialysis treatment at the time of my visit (seen on HD at ~ 12:45PM); given his hemodynamics and pressor requirements, not clear how well he will tolerate intermittent dialysis; remains on the ventilator at this time; no acute distress apparent. Exam Narrative: Exam Narrative: General: ill appearing male on full ventilator support Heart: normal S1 and S2; no rub Lungs: coarse breath sounds with scattered rales and rhonchi Abdomen: soft, nontender, nondistended, hypoactive bowel sounds Extremities: no cyanosis or clubbing; no edema Skin: warm and dry Objective Data Vital Signs Vital Signs: Vital Signs Temp Pulse Resp BP BP Pulse Ox 10/13/20 12:15 68 32 H 105/60 118/71 88 L 10/13/20 10:01 72 32 H 92 10/13/20 10:00 71 32 H 110/63 90 10/13/20 09:46 71 32 H 10/13/20 09:03 71 32 H 10/13/20 08:54 63 32 H 91/55 L 10/13/20 08:53 63 32 H 91/55 L 10/13/20 08:19 60 32 H 93 10/13/20 08:00 36.6 C 63 32 H 91/55 L 91 10/13/20 06:05 57 L 95/59 L 10/13/20 06:00 60 32 H 95/59 L 92 10/13/20 05:53 56 L 10/13/20 05:30 57 L 32 H 93 10/13/20 05:28 57 L 100/55 L 10/13/20 05:23 58 L 32 H 83/55 L 10/13/20 05:05 57 L 94 10/13/20 05:01 61 83/55 L 10/13/20 04:58 61 32 H 93/53 L 10/13/20 04:57 60 32 H 93/53 L 10/13/20 04:00 36.4 C L 59 L 32 H 85/56 L 88 L 10/13/20 03:54 62 86/53 L 10/13/20 03:52 61 32 H 10/13/20 03:51 61 32 H 10/13/20 03:24 62 32 H 89 L 10/13/20 03:11 59 L 32 H 88 L 10/13/20 03:00 62 32 H 89/56 L 10/13/20 02:45 62 90/54 L 10/13/20 02:00 60 32 H 90/55 L 93 10/13/20 01:55 62 10/13/20 01:05 62 79/59 L 10/13/20 01:00 93 33 H 94/68 L 10/13/20 00:51 62 79/54 L 10/13/20 00:32 61 32 H 93 10/13/20 00:27 61 93 10/13/20 00:13 62 32 H 10/13/20 00:00 36.3 C L 62 32 H 88/59 L 93 10/12/20 23:23 62 32 H 91 10/12/20 23:00 62 32 H 91/55 L 10/12/20 22:29 60 89 L 10/12/20 22:00 65 32 H 91/61 L 89 L 10/12/20 21:48 89 10/12/20 21:40 64 32 H 89 L 10/12/20 20:59 67 32 H 105/66 10/12/20 20:58 68 32 H 105/66 10/12/20 20:35 69 32 H 10/12/20 20:33 69 32 H 10/12/20 20:04 60 84 L 10/12/20 20:00 36.1 C L 69 32 H 98/58 L 97 10/12/20
[2020-10-13 13:29] LABS: Alveolar/Arterial O2 Gradient 596.6 mmHg; Base Excess ABG -6.6 mEq/l (+/-2.0); Carboxyhemoglobin 0.2 % THb (0-2.0); Fractional Inspired Oxygen 100 %; HCO3 ABG 22.2 mEq/l (22.0-26.0); Methemoglobin ABG 0.2 %THb (0-1.5); Oxygen Content ABG 17.2 %vol (16.0-22.0); Oxyhemoglobin 84.4 % THb (90.0-100.0); PCO2 ABG 57.9 mmHg (35.0-45.0); PO2 ABG 58.5 mmHg (80.0-100.0); PO2 FiO2 Ratio Arterial Blood 0.58 %; Reduced Hemoglobin 15.2 %THb (0-5.0); Total Hemoglobin 14.5 g/dL (12.0-18.0)
[2020-10-13 13:30] LABS: Device AMBU BAG; Modified Allen's Test Pass; Oxygen Saturation ABG 83.8 % (95.0-100.0); Site Drawn LEFT RADIAL; pH ABG 7.201 (7.350-7.450)
[2020-10-13 13:37] LABS: Hepatitis B Surface Antigen Negative (Negative)
[2020-10-13 13:43] LABS: HAV RESULT Negative (Negative); Hepatitis B Core IgM Result Negative (Negative)
[2020-10-13 13:54] LABS: Hepatitis B Surface Anti Res Negative; Hepatitis C Virus Antibody Negative (Negative)
--- NOTE | 2020-10-13 16:02 | PM.IMPN ---
Progress Note: A&P Assessment and Plan (1) Acute kidney failure, unspecified: Code(s): N17.9 - Acute kidney failure, unspecified Status: Acute Assessment and Plan: Worsening. Temporal dialysis catheter is in. Appreciate nephrology not Likely ATN Low urine output On pressors (2) Acute and chronic respiratory failure with hypoxia: Code(s): J96.21 - Acute and chronic respiratory failure with hypoxia Status: Acute Assessment and Plan: On ventilator support. Appreciate Int/cc note. Vent management as per Int/Cc (3) Sepsis with acute hypoxic respiratory failure: Code(s): A41.9 - Sepsis, unspecified organism; R65.20 - Severe sepsis without septic shock; J96.01 - Acute respiratory failure with hypoxia Status: Acute Assessment and Plan: On zosyn Completed Remdesivir. (4) Pneumonia due to COVID-19 virus: Onset Date: ~09/2020 Code(s): U07.1 - COVID-19; J12.89 - Other viral pneumonia Status: Acute Assessment and Plan: Completed Remdesivir. Supportive care. Subjective Date/time seen: 10/13/20 16:02 On vent. Review of Systems Review of Systems: Narrative: Unable to obtain as patient is on vent. Exam Narrative: Exam Narrative: Patient not examined but seen thru glass door. Noted on pronation and on vent support. Objective Data Vital Signs Vital Signs: Vital Signs - 24 hr 10/12/20 18:00 10/12/20 18:17 10/12/20 18:19 Temperature Pulse Rate 67 60 60 Respiratory Rate 28 H 28 H Blood Pressure 101/66 Blood Pressure [Left Arm] Pulse Oximetry 95 93 94 10/12/20 19:30 10/12/20 19:41 10/12/20 20:00 Temperature 96.9 F L Pulse Rate 70 70 69 Respiratory Rate 28 H 28 H 32 H Blood Pressure 101/64 98/58 L Blood Pressure [Left Arm] Pulse Oximetry 82 L 97 10/12/20 20:04 10/12/20 20:33 10/12/20 20:35 Temperature Pulse Rate 60 69 69 Respiratory Rate 32 H 32 H Blood Pressure Blood Pressure [Left Arm] Pulse Oximetry 84 L 10/12/20 20:58 10/12/20 20:59 10/12/20 21:40 Temperature Pulse Rate 68 67 64 Respiratory Rate 32 H 32 H 32 H Blood Pressure 105/66 105/66 Blood Pressure [Left Arm] Pulse Oximetry 89 L 10/12/20 21:48 10/12/20 22:00 10/12/20 22:29 Temperature Pulse Rate 89 65 60 Respiratory Rate 32 H Blood Pressure 91/61 L Blood Pressure [Left Arm] Pulse Oximetry 89 L 89 L 10/12/20 23:00 10/12/20 23:23 10/13/20 00:00 Temperature 97.3 F L Pulse Rate 62 62 62 Respiratory Rate 32 H 32 H 32 H Blood Pressure 91/55 L 88/59 L Blood Pressure [Left Arm] Pulse Oximetry 91 93 10/13/20 00:13 10/13/20 00:27 10/13/20 00:32 Temperature Pulse Rate 62 61 61 Respiratory Rate 32 H 32 H Blood Pressure Blood Pressure [Left Arm] Pulse Oximetry 93 93 10/13/20 00:51 10/13/20 01:00 10/13/20 01:05 Temperature Pulse Rate 62 93 62 Respiratory Rate 33 H Blood Pressure 79/54 L 94/68 L 79/59 L Blood Pressure [Left Arm] Pulse Oximetry 10/13/20 01:55 10/13/20 02:00 10/13/20 02:45 Temperature Pulse Rate 62 60 62 Respiratory Rate 32 H Blood Pressure 90/55 L 90/54 L Blood Pressure [Left Arm] Pulse Oximetry 93 10/13/20 03:00 10/13/20 03:11 10/13/20 03:24 Temperature Pulse Rate 62 59 L 62 Respiratory Rate 32 H 32 H 32 H Blood Pressure 89/56 L Blood Pressure [Left Arm] Pulse Oximetry 88 L 89 L 10/13/20 03:51 10/13/20 03:52 10/13/20 03:54 Temperature Pulse Rate 61 61 62 Respiratory Rate 32 H 32 H Blood Pressure 86/53 L Blood Pressure [Left Arm] Pulse Oximetry 10/13/20 04:00 10/13/20 04:57 10/13/20 04:58 Temperature 97.5 F L Pulse Rate 59 L 60 61 Respiratory Rate 32 H 32 H 32 H Blood Pressure 85/56 L 93/53 L 93/53 L Blood Pressure [Left Arm] Pulse Oximetry 88 L 10/13/20 05:01 10/13/20 05:05 10/13/20 05:23 Temperature Pulse Rate 61 57 L 58 L Respiratory Rate 32 H Blood Pressure 83/
[2020-10-13 16:10] LABS: Glucose Point of Care 253 (65-105)
[2020-10-13 16:27] LABS: Hepatitis B Surface Antigen Negative (Negative)
[2020-10-13 16:32] LABS: Hepatitis B Core IgM Result Negative (Negative)
[2020-10-13 16:45] LABS: Hepatitis B Surface Anti Res Negative
[2020-10-13 18:23] LABS: Glucose Point of Care 315 (65-105)
[2020-10-13] MEDS: NOREPINEPHRINE 8 MG/D5W 250 ML 8 MG/250 ML BAG 11.25 MG IV CONT (19:21)
[2020-10-13] MEDS: ENOXAPARIN 40 MG/0.4 ML SYRINGE SUB-Q (20:31)
[2020-10-13 20:38] LABS: Glucose Point of Care 376 (65-105)
[2020-10-13 21:58] LABS: Alveolar/Arterial O2 Gradient 537.2 mmHg; Base Excess ABG -8.2 mEq/l (+/-2.0); Carboxyhemoglobin 0.3 % THb (0-2.0); Fractional Inspired Oxygen 100 %; HCO3 ABG 20.3 mEq/l (22.0-26.0); Methemoglobin ABG 0.3 %THb (0-1.5); Oxygen Content ABG 19.5 %vol (16.0-22.0); Oxygen Saturation ABG 97.5 % (95.0-100.0); Oxyhemoglobin 96.4 % THb (90.0-100.0); PCO2 ABG 53.9 mmHg (35.0-45.0); PO2 ABG 121.9 mmHg (80.0-100.0); PO2 FiO2 Ratio Arterial Blood 1.22 %; Total Hemoglobin 14.3 g/dL (12.0-18.0)
[2020-10-13 21:59] LABS: pH ABG 7.194 (7.350-7.450)
[2020-10-13 22:00] LABS: Arterial Blood Gas PEEP 16 cmH2O; Arterial Blood Gas Tidal Volume 460 ml; Arterial Blood Gas Vent Mode CMV; Arterial Blood Gas Ventilator rate 36 /MIN; Device VENTILATOR; Modified Allen's Test Unable to perform; Site Drawn RIGHT RADIAL
[2020-10-13] MEDS: SODIUM BICARBONATE 8.4% 50 MEQ/50 ML VIAL 100 MEQ IV PUSH (22:52)
[2020-10-14] VITALS (33 sets, daily range): BP systolic 56–114; BP diastolic 32–64; PULSE 60–85; RESP 15–36; TEMP 35.7–36.2; O2SAT 95–98
[2020-10-14] MEDS: INSULIN ASPART (*BKC) 100 UNITS/ML SUB-Q ×4 (00:07→11:28)
[2020-10-14 00:12] LABS: Glucose Point of Care 319 (65-105)
[2020-10-14 04:06] LABS: Glucose Point of Care 304 (65-105)
[2020-10-14] MEDS: EPOPROSTENOL SODIUM 0.5 MG VIAL 1 MG INHALATION ×2 (04:13→09:44)
[2020-10-14 04:17] LABS: Hematocrit 38.1 % (42.0-52.0); Hemoglobin 13.3 g/dL (14.0-18.0); Mean Corpuscular HGB Conc 34.9 g/dl (32-36); Mean Corpuscular Hemoglobin 31.4 pg (26-34); Mean Corpuscular Volume 90.1 fl (80-100); Mean Platelet Volume 10.2 fl (7.4-10.4); Platelet Count Result 377 k/mm3 (150-375); Red Blood Count 4.23 M/mm3 (4.6-6.20); White Blood Count 22.3 K/mm3 (4.5-10.0)
[2020-10-14 04:45] LABS: D Dimer 4.03 ug/mL (<0.48)
[2020-10-14 04:51] LABS: Alanine Aminotransferase 113 U/L (4-50); Albumin Level 2.9 g/dL (3.5-5.1); Alkaline Phosphatase 42 U/L (38-126); Anion Gap 18 mmol/L (8-16); Aspartate Amino Transferase 223 U/L (17-59); Bilirubin,Total 0.8 mg/dL (0.2-1.3); Blood Urea Nitrogen 92 mg/dL (9-20); Calcium 7.8 mg/dL (8.4-10.2); Carbon Dioxide 24 mmol/L (22-30); Chloride 81 mmol/L (98-107); Estimated CRCL calculation 17 ml/min; Estimated Glomerular Filt Rate 6; Glucose 306 mg/dL (75-110); Lactate Dehydrogenase 1081 U/L (313-618); Magnesium 2.8 mg/dL (1.6-2.3); Phosphorus 12.2 mg/dL (2.5-4.5); Potassium 5.5 mmol/L (3.4-5.0); Sodium 123 mmol/L (137-145)
[2020-10-14 05:03] LABS: CRP 23.6 mg/dL (<1.0)
[2020-10-14] MEDS: CENTRAL LINE FLUSH 10 ML IV PUSH (05:15)
[2020-10-14 06:15] LABS: Alveolar/Arterial O2 Gradient 554.3 mmHg; Base Excess ABG -7.9 mEq/l (+/-2.0); Carboxyhemoglobin 0.3 % THb (0-2.0); Device VENTILATOR; Fractional Inspired Oxygen 100 %; HCO3 ABG 20.5 mEq/l (22.0-26.0); Methemoglobin ABG 0.3 %THb (0-1.5); Modified Allen's Test Unable to perform; Oxygen Content ABG 19.1 %vol (16.0-22.0); Oxygen Saturation ABG 96.6 % (95.0-100.0); PCO2 ABG 53.6 mmHg (35.0-45.0); PO2 ABG 105.1 mmHg (80.0-100.0); PO2 FiO2 Ratio Arterial Blood 1.05 %; Reduced Hemoglobin 3.4 %THb (0-5.0); Site Drawn RIGHT RADIAL; Total Hemoglobin 14.1 g/dL (12.0-18.0); pH ABG 7.201 (7.350-7.450)
[2020-10-14 06:16] LABS: Arterial Blood Gas PEEP 16 cmH2O; Arterial Blood Gas Tidal Volume 460 ml; Arterial Blood Gas Vent Mode CMV; Arterial Blood Gas Ventilator rate 36 /MIN
[2020-10-14] MEDS: DEXAMETHASONE SOD PHOS INJ 4 MG/ML VIAL 6 MG IV PUSH (08:23)
[2020-10-14] MEDS: ENOXAPARIN 40 MG/0.4 ML SYRINGE SUB-Q (08:23)
[2020-10-14] MEDS: PANTOPRAZOLE SODIUM IV 40 MG VIAL IV PUSH (08:24)
[2020-10-14 08:54] LABS: Glucose Point of Care 292 (65-105)
[2020-10-14] MEDS: FENTANYL 2,500MCG/NS250ML(*CRX 2,500 MCG/250 ML BAG 20 MCG IV CONT (10:34)
[2020-10-14] MEDS: NOREPINEPHRINE 8 MG/D5W 250 ML 8 MG/250 ML BAG 52.5 MG IV CONT ×2 (10:34→14:09)
--- NOTE | 2020-10-14 10:56 | WPDINTPN ---
Progress Note: A&P Assessment and Plan (1) Acute and chronic respiratory failure with hypoxia: Code(s): J96.21 - Acute and chronic respiratory failure with hypoxia Status: Acute Assessment and Plan: Acute hypoxic respiratory failure likely related to COVID-19 pneumonia -intubated on 10/10/2020 - needs URGENT ECMO and SLED/CVVHDF and he's been accepted to [facility] but no bed is currently availble. -chest x-ray and ABGs reviewed, on pressure control ventilation with a PEEP of 16, FiO2 of 100%. Will switch patient to CMV mode as he was getting significant amount of tidal volume on pressure control ventilation. -patient was prone for 13 hours. ABG is getting worse but oxygenation has improved transiently -patient also on Flolan -continue fentanyl and Versed infusion. Continue Nimbex for neuromuscular blockade -patient has been on Zosyn for possible aspiration during intubation -volume overloaded on chest x-ray and likely related to acute kidney injury, will place dialysis catheter and dialyze the patient today, discussed with Nephrology (2) Pneumonia due to COVID-19 virus: Onset Date: ~09/2020 Code(s): U07.1 - COVID-19; J12.89 - Other viral pneumonia Status: Acute Assessment and Plan: SARS-CoV-2 PCR PCR positive on 10/04/2020 -patient presented with fevers, increasing shortness of breath - remdesivir stopped after two days due to renal failure. Dexamethsone day 03/30 today. -patient has probably out of the window for convalescent plasma -continue droplet, airborne and contact isolation/precautions (3) Shock: Code(s): R57.9 - Shock, unspecified Status: Acute Assessment and Plan: Patient was diuresed prior to intubation post intubation dropped his blood pressures requiring central line placement and started on Levophed will continue to maintain mean arterial pressures greater than 70 mmHg for adequate end organ perfusion -blood cultures from 10/09 are negative x2 -sputum cultures negative todate (4) Acute kidney failure, unspecified: Code(s): N17.9 - Acute kidney failure, unspecified Status: Acute Assessment and Plan: Acute kidney injury likely related to hypotension, hypoxia. Patient on Levophed, will continue to maintain MAP > 70 mmHg for adequate end organ perfusion -renal ultrasound was unremarkable -elevated CK levels, worsening creatinine - did not tolerated acute dialysis yesterday - needs SLED or CRRT at tertiary care facility. Would not be opposed to trying SLED here if availble. - Bicarb is good but K is borderline high and needs close monitoring and treatment (5) SREE treated with BiPAP: Code(s): G47.33 - Obstructive sleep apnea (adult) (pediatric) Status: Acute Assessment and Plan: Currently intubated and sedated (6) T2DM (type 2 diabetes mellitus): Code(s): E11.9 - Type 2 diabetes mellitus without complications Status: Acute Assessment and Plan: Accu-Cheks high-dose sliding scale insulin (7) DVT prophylaxis: Code(s): Z29.9 - Encounter for prophylactic measures, unspecified Status: Acute Assessment and Plan: Lovenox 40 mg SQ q.12 hours (8) Dietary counseling and surveillance: Code(s): Z71.3 - Dietary counseling and surveillance Status: Acute Assessment and Plan: Protonix for stress ulcer prophylaxis Tube feeds started. Additional Plan . Transfer to a tertiary care facility initiated by Dr. Flower yesterday Code status: Full code Critical care time spent: 35 minutes Due to a high probability of clinically significant, life threatening deterioration, the patient required my highest level of preparedness to intervene emergently and I personally spent this critical care time directly and personally managing the patient. This critical care time included obtaining a history; examining the patient; pulse oximetry; ordering and review of studies; arranging urgent nichole
--- NOTE | 2020-10-14 11:20 | PM.PNNEP ---
Progress Note: A&P Assessment and Plan (1) Acute kidney failure, unspecified: Code(s): N17.9 - Acute kidney failure, unspecified Status: Acute Assessment and Plan: most likely ATN from a combination of hemodynamic instability, COVID-19 infection, and mild rhabdo unfortunately, his creatinine continues to rise associated with worsening oxygenation, hyponatremia, mild hyperkalemia, and acidosis furthermore, his urine output is declining as well; he remains on pressors as well he needs dialysis/renal replacement therapy -- however, he did not tolerated regular hemodialysis and likely needs SLED or CRRT... - Dr. Fairchild attempting to transfer to another facility/hospital for this intervention could attempt regular HD again today but I doubt he would do any better than the attempt yesterday (2) Shock: Code(s): R57.9 - Shock, unspecified Status: Acute Assessment and Plan: on levophed follow hemodynamics continue supportive therapy (3) Acute and chronic respiratory failure with hypoxia: Code(s): J96.21 - Acute and chronic respiratory failure with hypoxia Status: Acute Assessment and Plan: presumably worsened by COVID-19 pneumonia on maximum ventilator support also on Flolan Pulmonary following with recommendations noted continue supportive measures (4) Pneumonia due to COVID-19 virus: Onset Date: ~09/2020 Code(s): U07.1 - COVID-19; J12.89 - Other viral pneumonia Status: Acute Assessment and Plan: off remdesivir (due to worsening renal failure) but remains on steroids follow respiratory status Discussed case with Dr. Fairchild. Will continue to follow. Subjective Date/time seen: 10/14/20 11:20 Did not tolerated intermittent HD yesterday -- probably needs SLED or CRRT for renal replacement therapy; condition has deteriorated overnight with borderline K+ levels associated with worsening acidosis and volume overload; remains on full ventilator support as well as vasopressor therapy. Exam Narrative: Exam Narrative: General: ill appearing male on full ventilator support Heart: normal S1 and S2; no rub Lungs: coarse breath sounds with scattered rales and rhonchi Abdomen: soft, nontender, nondistended, hypoactive bowel sounds Extremities: no cyanosis or clubbing; trace edema Skin: warm and intact Objective Data Vital Signs Vital Signs: Vital Signs Temp Pulse Resp BP BP Pulse Ox 10/14/20 11:00 71 36 H 10/14/20 10:34 72 36 H 85/58 L 10/14/20 10:00 35.7 C L 75 36 H 90/59 L 96 10/14/20 09:48 72 36 H 10/14/20 09:47 71 36 H 97 10/14/20 09:17 73 83/50 L 10/14/20 08:40 74 96 10/14/20 08:30 70 81/48 L 10/14/20 08:00 35.7 C L 69 36 H 82/50 L 97 10/14/20 06:55 67 36 H 86/45 L 10/14/20 06:30 77 56/32 L 10/14/20 06:06 67 98 10/14/20 06:00 36.1 C L 67 36 H 91/53 L 98 10/14/20 05:51 67 90/53 L 10/14/20 05:50 67 36 H 90/53 L 10/14/20 05:33 69 85/48 L 10/14/20 04:38 70 86/49 L 10/14/20 04:13 71 36 H 97 10/14/20 04:09 71 97 10/14/20 04:00 36.2 C L 70 36 H 91/52 L 97 10/14/20 03:49 70 36 H 10/14/20 02:06 65 36 H 97 10/14/20 02:03 64 97 10/14/20 02:00 36.1 C L 65 36 H 101/58 L 97 10/14/20 01:07 63 36 H 108/61 10/14/20 01:06 62 36 H 108/61 10/14/20 00:00 35.9 C L 60 15 105/62 97 10/13/20 23:00 59 L 14 105/60 10/13/20 22:16 64 36 H 97 10/13/20 22:10 65 98 10/13/20 22:00 64 36 H 106/64 97 10/13/20 21:54 64 10/13/20 21:18 63 36 H 10/13/20 21:14 64 36 H 10/13/20 21:00 63 36 H 110/66 10/13/20 20:34 64 36 H 10/13/20 20:33 65 36 H 10/13/20 20:20 63 36 H 98 10/13/20 20:00 36.0 C L 63 36 H 117/67 97 10/13/20 19:21 64 36 H 106/65 10/13/20 19:16 64
[2020-10-14] MEDS: VASOPRESSIN INJ 100 UNITS in DEXTROSE 5% 95 ML IV CONT (11:28)
[2020-10-14 11:37] LABS: Glucose Point of Care 315 (65-105)
--- NOTE | 2020-10-14 12:51 | PCDIET ---
ICU Rounding Note: Patient remains NPO. Unable to tolerate dialysis yesterday due to desaturation. Plan for transfer to outside facility for CRRT. Last recorded weight is 221.4kg which is increased from last review. +I/O. 10mL urine output yesterday. Bowel Motility: No documented BM yet. Labs Reviewed: Hgb (13.3), Hct (38.1), Glu (306), BUN (92), Cr (9.2), K (5.5), Na (123), Alb (2.9), Edmond Ca (8.68), PO4 (12.2) Meds Noted: Albumin, Nimbex, Decadron, Fentanyl, Novolog, Versed, Levophed, Protonix, Zosyn, Vasopressin Additional Notes: RN reports deep tissue injury to buttocks. MD order to hold tube feedings today. Following daily in ICU rounds. Assessing/reassessing every 3 days.
--- NOTE | 2020-11-30 19:27 | PM.TDS ---
Transfer Discharge Sum: Prov Provider Date of admission: 10/09/20 05:09 Primary care physician: Patti LambCaleb Admitting clinician: Cole Nicholson MD Attending physician on admission: Cole Nicholson Consults: 10/10/20 Consult to Physician Routine Comment: CALLED OFFICE WITH CONSULT INFORMATION Consulting Provider: Elizabeth Saunders call taker/MD group to consult: Pulmonology Reason for consultation: Acute hypoxic respiratory failure Has provider been notified: Yes 10/12/20 07:34 Consult to Physician Routine Comment: Consulting Provider: Tyson Armstrong call taker/MD group to consult: NEPHROLOGY Reason for consultation: AKUTE KIDNEY INJURY Has provider been notified: Yes 10/13/20 10:16 Consult to Physician Routine Comment: Consulting Provider: Mike Marquez call taker/MD group to consult: SURGERY- already D/w Dr. Melton Reason for consultation: Dialysis catheter Has provider been notified: Yes Attending physician on discharge: Medhat Anderson V. DS: Admitting Diagnosis Admitting Diagnosis Admitting Diagnosis: Covid 19 pneumonia Acute hypoxic respiratory failure Morbid obesity DS: Discharge Diagnosis Discharge Diagnosis (1) Pneumonia due to COVID-19 virus: Onset Date: ~09/2020 Code(s): U07.1 - COVID-19; J12.89 - Other viral pneumonia Status: Acute (2) Acute and chronic respiratory failure with hypoxia: Code(s): J96.21 - Acute and chronic respiratory failure with hypoxia Status: Acute (3) Acute kidney failure, unspecified: Code(s): N17.9 - Acute kidney failure, unspecified Status: Acute (4) Shock: Code(s): R57.9 - Shock, unspecified Status: Acute (5) Fluid overload: Code(s): E87.70 - Fluid overload, unspecified Status: Acute (6) Obesity determined by physical examination: Code(s): E66.9 - Obesity, unspecified Status: Acute (7) T2DM (type 2 diabetes mellitus): Code(s): E11.9 - Type 2 diabetes mellitus without complications Status: Acute (8) Sepsis with acute hypoxic respiratory failure: Code(s): A41.9 - Sepsis, unspecified organism; R65.20 - Severe sepsis without septic shock; J96.01 - Acute respiratory failure with hypoxia Status: Acute Transfer Discharge Sum: Med Medications Active and Home Medications: Home Medications albuterol sulfate 2 puff INHALATION QID PRN #6.7 g 10/04/20 [Rx Confirmed 10/09/20] amlodipine 10 mg PO DAILY 10/04/20 [History Confirmed 10/09/20] azithromycin [Zithromax TRI-ANA PAULA] See Rx Instructions .ROUTE .COMPLEX #6 tablet 10/04/20 [Rx Confirmed 10/09/20] famotidine [Pepcid] 20 mg PO BID #14 tablet 10/04/20 [Rx Confirmed 10/09/20] fluticasone propionate [Flonase Allergy Relief] 2 spray INTRANASAL DAILY #9.9 ml 10/04/20 [Rx Confirmed 10/09/20] glimepiride 1 mg PO DAILY 10/04/20 [History Confirmed 10/09/20] ibuprofen [IBU] 600 mg PO Q6H PRN #7 tablet 10/04/20 [Rx Confirmed 10/09/20] lisinopril 40 mg PO DAILY 10/04/20 [History Confirmed 10/09/20] loratadine [Claritin] 10 mg PO DAILY PRN #14 tablet 10/04/20 [Rx Confirmed 10/09/20] metformin 1,000 mg PO DAILY 10/04/20 [History Confirmed 10/09/20] hydrochlorothiazide 25 mg PO DAILY 10/09/20 [History Confirmed 10/09/20] promethazine-DM 5 ml PO Q4H PRN 10/09/20 [History Confirmed 10/09/20] Transfer Discharge Sum: Hosp Hospital Course Hospital course: Jesús Chance is a 50 year old male with PMHx significant for Asthma, Morbid obesity, presented to the ED due to worsening sob, with low oxygen saturations, wheezing. Patient required BiPAP, high flow. In spite of this patient's respiratory status continue to deteriorate and decision was made to place patient on ventilator support. Course was complicated with renal failure and failed attempts to do HD as patient was very labile and desaturated multiple times. Patient was placed on Flolan but continue to deteriorate respiratory status. Decision was made to trans
== END 2020-10-14 14:45 | disposition short-term general hospital (02) | DRG 871 ==
LOC: ANHED 05:13 → ANHIMU 10:55 → ANHICU 10-13 10:59 → ANHIMU 10-15 16:47
PROVIDERS: Internal Medicine; Internal Medicine Nephrology; Admitting Provider Family Medicine; Emergency Provider Emergency Medicine; PCP Internal Medicine Infectious Disease; Visit Provider Internal Medicine
DX: A41.89 Other specified sepsis (principal); U07.1 COVID-19; J12.89 Other viral pneumonia; N17.0 Acute kidney failure with tubular necrosis; J80 Acute respiratory distress syndrome; Z68.44 Body mass index [BMI] 60.0-69.9, adult; R57.9 Shock, unspecified; E87.1 Hypo-osmolality and hyponatremia; N17.9 Acute kidney failure, unspecified; M62.82 Rhabdomyolysis; E87.4 Mixed disorder of acid-base balance; R65.20 Severe sepsis without septic shock; G47.33 Obstructive sleep apnea (adult) (pediatric); E66.01 Morbid (severe) obesity due to excess calories; E11.9 Type 2 diabetes mellitus without complications; Z79.84 Long term (current) use of oral hypoglycemic drugs; Z87.891 Personal history of nicotine dependence; E87.70 Fluid overload, unspecified; E87.5 Hyperkalemia; T17.918A Gastric contents in respiratory tract, part unspecified causing other injury, initial encounter; Y84.9 Medical procedure, unspecified as the cause of abnormal reaction of the patient, or of later complication, without mention of misadventure at the time of the procedure; Y92.230 Patient room in hospital as the place of occurrence of the external cause
CPT/HCPCS: 31500; 36415; 36569; 36600; 71045; 76775; 80048; 80053; 80074; 81001; 82375; 82550; 82728; 82805; 83050; 83605; 83615; 83735; 83880; 84100; 84460; 84484; 85025; 85027; 85380; 85610; 85730; 86140; 86705; 86706; 87040; 87340; 93005; 94002; 94003; 94640; 96361; 96374; 99285; A9270; C1751; C9113; G0257; J0131; J0456; J0696; J1100; J1644; J1650; J1815; J1940; J2060; J2250; J2543; J3010; J3370; J7030; J7060; P9047